=== PATIENT | female | born 1965 | race Caucasian/White ===

== ENCOUNTER 2023-11-21 14:21 | Emergency (ER) | payer SELFPAY ==
--- OUTSIDE RECORDS SUMMARY | 2023-11-21 14:25 | XMS REPORT | Continuity of Care Document ---
Author Name Unknown Address [address] [facility] Zak[address] [facility] Address [address] [facility] [address] [place] [address] Care Team Providers Care Endoscopy Registered Nurse Name Role Phone Aranza Bravo Primary Care Physician Allergies, Adverse Reactions, Alerts Allergy Name Allergy Type Status Severity Reaction(s) Onset Date Inactive Date Treating Clinician Comments Source sulfadia zine Propensi ty to adverse reaction to drug Active 09-18 00:00: 00 Douglas Lei Medications Ordered Medication Name Filled Medication Name Start Date Stop Date Current Medication? Ordering Clinician Indication Dosage Frequency Signature (SIG) Comments Components Source levothyroxi ne 50 mcg tablet 09-18 00:00: 00 Yes 1mcg Douglas Lei propranolol 10 mg tablet 09-05 00:00: 00 Yes 1mg Douglas F Quique Prozac 10 mg capsule - 00:00: 00 Yes 3mg Douglas F Quique propranolol 10 mg tablet - 00:00: 00 Yes 1mg Douglas Emily Quique Prozac 10 mg capsule - 00:00: 00 Yes 3mg Douglas Emily Quique INHALE 2 PUFFS AT 12 HOUR INTERVALS (MORNING AND EVENING). - 00:00: 00 Yes [id number] Douglas Emily Lie INHALE 2 PUFFS TWICE DAILY. - 00:00: 00 Yes 44 Douglas Lei TAKE 1 TABLET TWICE DAILY. -20 00:00: 00 09-18 00:00 :00 No 20 Douglas Lei TAKE 1 TABLET TWICE DAILY WITH FOOD. - 00:00: 00 09-18 00:00 :00 No [id number] Douglas Lei TAKE 2 TABLETS ON DAY 1 THEN TAKE 1 TABLET A DAY FOR 4 DAYS. 2-20 00:00: 00 09-18 00:00 :00 No 250 Douglas Lei TAKE 10 MG TABLET EVERY 12 HOURS NEEDED FOR SITUATIONAL ANXIETY. 1-04 00:00: 00 09-18 00:00 :00 No 10 Douglas Lei TAKE 1 CAPSULE BY MOUTH ONCE DAILY 1-04 00:00: 00 09-18 00:00 :00 No 20 Douglas Lei INHALE 2 PUFFS EVERY 4-6 HOURS, SPACED 60 SECONDS APART. 2022-06 2-12 00:00: 00 Yes [id number] Douglas Lei TAKE 10 MG TABLET EVERY 12 HOURS NEEDED FOR SITUATIONAL ANXIETY. 2022-06 1-09 00:00: 00 09-18 00:00 :00 No 10 Douglas Lei TAKE 1 CAPSULE BY MOUTH ONCE DAILY 2022-06 1-09 00:00: 00 09-18 00:00 :00 No 20 Douglas Lei TAKE 10 MG TABLET EVERY 12 HOURS NEEDED FOR SITUATIONAL ANXIETY. 2022-06 0-10 00:00: 00 09-18 00:00 :00 No 10 Douglas Lei TAKE 1 CAPSULE BY MOUTH ONCE DAILY 2022-06 0-10 00:00: 00 09-18 00:00 :00 No 20 Douglas Lei TAKE 1 TABLET DAILY. 2022-06 0-06 00:00: 00 Yes 50 Douglas Lei TAKE 1 CAPSULE WEEKLY. 2022-06 0-06 00:00: 00 09-18 00:00 :00 No [id number] Douglas Lei TAKE 1 CAPSULE BY MOUTH ONCE DAILY 9-13 00:00: 00 09-18 00:00 :00 No 20 Douglas Lei TAKE 1 CAPSULE BY MOUTH ONCE DAILY 8-16 00:00: 00 09-18 00:00 :00 No 20 Douglas Lei TAKE 1 CAPSULE BY MOUTH ONCE DAILY 7-17 00:00: 00 09-18 00:00 :00 No 20 Douglas Lei TAKE 1 TABLET DAILY. 6-20 00:00: 00 09-18 00:00 :00 No 50 Douglas Lei TAKE 1 CAPSULE BY MOUTH ONCE DAILY 6-19 00:00: 00 09-18 00:00 :00 No 20 Douglaslidya Lei TAKE 1 TABLET DAILY. 6-19 00:00: 00 09-18 00:00 :00 No 10 Douglas Lei 10 ML Q 4 TO 6 HOURS PRN COUGH FOR 5 DAYS 11-20 00:00: 00 09-18 00:00 :00 No [id number] Douglas Lei INHALE 2 PUFFS EVERY 4-6 HOURS, SPACED 60 SECONDS APART. 16 00:00: 00 09-18 00:00 :00 No [id number] Douglas Lei TAKE 10 MG TABLET EVERY 12 HOURS NEEDED FOR SITUATIONAL ANXIETY. 5- 00:00: 00 09-18 00:00 :00 No 10 Douglas Lei TAKE 1 CAPSULE BY MOUTH ONCE DAILY 5-15 00:00: 00 09-18 00:00 :00 No 20 Douglaslidya Lei TAKE 1 CAPSULE BY MOUTH ONCE DAILY 4-20 00:00: 00 09-18 00:00 :00 No 20 Douglas Lei TAKE 10 MG TABLET EVERY 12 HOURS NEEDED FOR SITUATIONAL ANXIETY. -20 00:00: 00 09-18 00:00 :00 No 10 Douglas Lei TAKE 1 TABLET DAILY. 3-28 00:00: 00 09-18 00:00 :00 No 50 Douglas Lei TAKE 1 TABLET DAILY. 3-27 00:00: 00 09-18 00:00 :00 No 75 Douglas Lei TAKE 1 TABLET DAILY. 2021-06 1-29 00:00: 00 09-18 00:00 :00 No 75 Douglas Lei TAKE 1 TABLET EVERY MORNING. 2021-06 0-24 00:00: 00 09-18 00:00 :00 No Douglas Emily Lei Dose Unknown 2021-06 0-20 00:00: 00 Yes Douglas Emily Quique Vital Signs Vital Name Observation Time Observation Value Comments S ource BP Diastolic 2023-09-19 10:14:00 69 mm[Hg] Zak phen F Quique Weight Measured 2023-09-19 10:14:00 182.60 pounds Douglas F Quique Height Measured 2023-09-19 10:14:00 63.00 inches Douglas F Quique Body Temperature 2023-09-19 10:14:00 97.60 degrees Douglas F Quique Heart Rate 2023-09-19 10:14:00 61.00 /min Connie en F Quique Respiratory Rate 2023-09-19 10:14:00 18.00 /min Douglas F Quique BP Systolic 2023-09-19 10:14:00 121 mm[Hg] Step hen F Quique BP Systolic 2023-07-24 10:05:00 122 mm[Hg] Step hen F Quique BP Diastolic 2023-07-24 10:05:00 83 mm[Hg] Zak phen F Quique Weight Measured 2023-07-24 10:05:00 179.00 pounds Douglas F Quique Height Measured 2023-07-24 10:05:00 63.00 inches Douglas F Quique Body Temperature 2023-07-24 10:05:00 98.50 degrees Douglas F Quique Heart Rate 2023-07-24 10:05:00 93.00 /min Connie en F Quique Respiratory Rate 2023-07-24 10:05:00 17.00 /min Douglas F Quique BP Systolic 2023-03-06 10:37:00 141 mm[Hg] Step hen F Quique BP Diastolic 2023-03-06 10:37:00 96 mm[Hg] Zak phen F Quique Weight Measured 2023-03-06 10:37:00 176.80 pounds Douglas F Quique Height Measured 2023-03-06 10:37:00 62.99 inches Douglas F Quique Body Temperature 2023-03-06 10:37:00 98.20 degrees Douglas F Quique Heart Rate 2023-03-06 10:37:00 66.00 /min Connie en F Quique Respiratory Rate 2023-03-06 10:37:00 19.00 /min Douglas F Quique BP Systolic 2023-03-06 10:30:00 141 mm[Hg] Step hen F Quique BP Diastolic 2023-03-06 10:30:00 96 mm[Hg] Zak phen F Quique Weight Measured 2023-03-06 10:30:00 176.80 pounds Douglas F Quique Height Measured 2023-03-06 10:30:00 62.99 inches Douglas F Quique Body Temperature 2023-03-06 10:30:00 98.20 degrees Douglas F Quique Heart Rate 2023-03-06 10:30:00 66.00 /min Connie en F Quique Respiratory Rate 2023-03-06 10:30:00 19.00 /min Douglas F Quique BP Systolic 2022-11-20 13:56:00 114 mm[Hg] Step hen F Quique BP Diastolic 2022-11-20 13:56:00 81 mm[Hg] Zak phen F Quique Weight Measured 2022-11-20 13:56:00 181.20 pounds Douglas F Quique Height Measured 2022-11-20 13:56:00 62.99 inches Douglas F Quique Body Temperature 2022-11-20 13:56:00 97.60 degrees Douglas F Quique Heart Rate 2022-11-20 13:56:00 85.00 /min Connie en F Quique Respiratory Rate 2022-11-20 13:56:00 Douglas F Quique BP Systolic 2022-10-17 11:12:00 Step hen F Quique BP Diastolic 2022-10-17 11:12:00 Zak phen F Quique Weight Measured 2022-10-17 11:12:00 180.00 pounds Douglas F Quique Height Measured 2022-10-17 11:12:00 62.99 inches Douglas F Quique Body Temperature 2022-10-17 11:12:00 Douglas F Quique Heart Rate 2022-10-17 11:12:00 Connie en F Quique Respiratory Rate 2022-10-17 11:12:00 Douglas F Quique BP Systolic 2022-08-28 08:33:00 127 mm[Hg] Step hen F Quique BP Diastolic 2022-08-28 08:33:00 77 mm[Hg] Zak phen F Quique Weight Measured 2022-08-28 08:33:00 178.20 pounds Douglas F Quique Height Measured 2022-08-28 08:33:00 62.99 inches Douglas F Qiuque Body Temperature 2022-08-28 08:33:00 97.50 degrees Douglas F Quique Heart Rate 2022-08-28 08:33:00 66.00 /min Connie en F Quique Respiratory Rate 2022-08-28 08:33:00 25.00 /min Douglas F Quique BP Systolic 2022-05-01 09:41:00 120 mm[Hg] Step hen F Quique BP Diastolic 2022-05-01 09:41:00 84 mm[Hg] Zak phen F Quique Weight Measured 2022-05-01 09:41:00 179.20 pounds Douglas F Quique Height Measured 2022-05-01 09:41:00 62.99 inches Douglas F Quique Body Temperature 2022-05-01 09:41:00 97.50 degrees Douglas F Quique Heart Rate 2022-05-01 09:41:00 72.00 /min Connie en F Quique Respiratory Rate 2022-05-01 09:41:00 19.00 /min Douglas F Quique BP Systolic 2022-03-21 10:49:00 159 mm[Hg] Step hen F Quique BP Diastolic 2022-03-21 10:49:00 99 mm[Hg] Zak phen F Quique Weight Measured 2022-03-21 10:49:00 179.80 pounds Douglas F Quique Height Measured 2022-03-21 10:49:00 62.99 inches Douglas F Quique Body Temperature 2022-03-21 10:49:00 97.30 degrees Douglas F Quique Heart Rate 2022-03-21 10:49:00 73.00 /min Connie en F Quique Respiratory Rate 2022-03-21 10:49:00 Douglas F Quique Encounters Start Date/Time End Date/Time Encounter Type Admission Type Attending [facility] [place] Care Department Encounter ID Source 2023-11-01 09:28:35 2023-11-01 09:28:35 Outpatient [facility] [id number] Douglas Lei 2023-10-16 15:42:09 2023-10-16 15:42:09 Outpatient [facility] [id number] Douglas Lei 2023-09-19 10:12:20 2023-09-19 10:12:20 Outpatient [facility] [id number] Douglas Lei 2023-09-19 00:00:00 2023-09-19 00:00:00 Outpatient Visit [facility] [id number] Douglas Lei 2023-09-11 16:44:49 2023-09-11 16:44:49 Outpatient [facility]FA SFA [id number] Douglas Lei 2023-08-28 14:34:30 2023-08-28 14:34:30 Outpatient SFA SFA [id number] Douglas Lei 2023-08-13 17:25:37 2023-08-13 17:25:37 Outpatient SFA SFA [id number] Douglas Lei 2023-08-06 08:51:42 2023-08-06 08:51:42 Outpatient SFA SFA [id number] Douglas Lei 2023-07-24 10:01:13 2023-07-24 10:01:13 Outpatient SFA SFA [id number] Douglas Lei 2023-07-17 11:06:14 2023-07-17 11:06:14 Outpatient SFA SFA [id number] Douglas Lei 2023-06-07 09:39:03 2023-06-07 09:39:03 Outpatient SFA SFA [id number] Douglas Lei 2023-04-12 09:43:19 2023-04-12 09:43:19 Outpatient SFA SFA [id number] Douglas Lei 2023-03-15 10:20:58 2023-03-15 10:20:58 Outpatient SFA SFA [id number] Douglas Lei 2023-03-06 10:25:12 2023-03-06 10:25:12 Outpatient SFA SFA [id number] Douglas Lei 2023-02-14 10:17:20 2023-02-14 10:17:20 Outpatient SFA SFA [id number] Douglas Lei 2023-01-17 10:37:33 2023-01-17 10:37:33 Outpatient SFA SFA [id number] Douglas Lei 2022-12-18 10:51:23 2022-12-18 10:51:23 Outpatient SFA SFA [id number] Douglas Lei 2022-11-20 13:49:26 2022-11-20 13:49:26 Outpatient SFA SFA [id number] Douglas Lei 2022-10-17 11:11:40 2022-10-17 11:11:40 Outpatient SFA SFA [id number] Douglas Lei 2022-08-28 08:22:13 2022-08-28 08:22:13 Outpatient SFA SFA [id number] Douglas Lei 2022-07-25 10:27:36 2022-07-25 10:27:36 Outpatient SFA SFA [id number] Douglas Lei 2022-06-27 10:03:44 2022-06-27 10:03:44 Outpatient SFA SFA [id number] Douglas Lei 2022-05-01 09:41:12 2022-05-01 09:41:12 Outpatient SFA SFA [id number] Douglas Lei 2022-03-21 10:43:54 2022-03-21 10:43:54 Outpatient SFA SFA [id number] Douglas Lei 2022-03-20 13:03:27 2022-03-20 13:03:27 Outpatient SFA SFA Douglas Lei Results Test Description Test Time Test Comments Results Result Co mments Source COMPREHENSIVE METABOLIC [id number] 06:04:14* Test Item Value Reference Range Interpretation Comme nts GLUCOSE (test code = 2217) 94 MG/DL 70-99 BUN (test code = 2208) 13 MG/DL 6-20 CREATININE (test code = 2214) 0.91 MG/DL 0.60-1.30 eGFR (2020 CKD-EPI) (test co de = 97316) 73 ML/MIN/1.73 >60 CALC BUN/CREAT (test code = 2235) 14 RATIO 6-28 SODIUM (test code = 2231) 142 MEQ/L 133-146 POTASSIUM (test code = 2228) 4.3 MEQ/L 3.5-5.4 CHLORIDE (test code = 2215) 102 MEQ/L 95-107 CARBON DIOXIDE (test code = 2206) 26 MEQ/L 19-31 CALCIUM (test code = 2208) 9.4 MG/DL 8.5-10.5 PROTEIN, TOTAL (test code = 2228) 7.1 G/DL 6.1-8.3 ALBUMIN (test code = 1) 4.6 G/DL 3.5-5.2 CALC GLOBULIN (test code = 2240) 2.5 G/DL 1.9-3.7 CALC A/G RATIO (test code = 2233) 1.8 RATIO 1.0-2.6 BILIRUBIN, TOTAL (test code = 2206) 1.3 MG/DL <=1.2 H ALKALINE PHOSPHATASE (test code = 2203) 72 U/L 40-136 AST (test code = 2217) 20 U/L 9-40 ALT (test code = 2218) 22 U/L 5-40 LIPID [id number] 06:04:14* Test Item Value Reference Range Interpretation Comme nts CHOLESTEROL (test code = 2209) 305 MG/DL <200 H TRIGLYCERIDES (test code = 2) 140 MG/DL <150 HDL CHOLESTEROL (test code = 0) 60 MG/DL >39 CALC LDL CHOL (test code = 2236) 216 MG/DL <100 H NOTE: CALCULATED LDL IS BASED ON MASHA-COLLINS METHOD WHICHINCLUDES ADJUSTABLE TRIGLYCERIDE:VLDL CHOLESTEROL RATIO.THIS FACTOR VARIES BY MEASURED TRIGLYCERIDE AND NON-HDLCHOLESTEROL CONCENTRATIONS WITH INCREASED CALCULATED LDL SEENIN HIGHER TRIGLYCERIDE OR LOWER NON-HDL SPECIMENS. FOR MOREINFORMATION, SEE CLIENT ANNOUNCEMENT AT [email or web address] RISK RATIO LDL/HDL (test code = 2237) 3.60 RATIO <3.22 H HEMOGLOBIN [id number] 03:34:45* Test Item Value Reference Range Interpretation Comme nts HEMOGLOBIN A1c (test code = 01221) 6.1 % 4.2-5.6 H [employer] GUIDELINES FOR HGB A1C: PREDIABETES/INCREASED RISK . . . . . . . 5.7-6.4% DIAGNOSIS OF DIABETES . . . . . . . . . >=6.5% WITH CONFIRMATION OR APPROPRIATE SYMPTOMS NOTE: ASSAY MAY BE AFFECTED BY HEMOGLOBINOPATHIES (SICKLE CELL ANEMIA, S-C DISEASE, OTHERS) OR ARTIFICIALLY LOWERED BY DECREASED RED CELL SURVIVAL (HEMOLYTIC ANEMIAS, BLOOD LOSS, ETC.). CONSIDER ALTERNATE TESTING OR LABORATORY CONSULTATION. HEMOGLOBIN [id number] 05:50:28* Test Item Value Reference Range Interpretation Comme [facility] HEMOGLOBIN A1c (test code = 54035) 6.0 % 4.2-5.6 H [employer] GUIDELINES FOR HGB A1C: PREDIABETES/INCREASED RISK . . . . . . . 5.7-6.4% DIAGNOSIS OF DIABETES . . . . . . . . . >=6.5% WITH CONFIRMATION OR APPROPRIATE SYMPTOMS NOTE: ASSAY MAY BE AFFECTED BY HEMOGLOBINOPATHIES (SICKLE CELL ANEMIA, S-C DISEASE, OTHERS) OR ARTIFICIALLY LOWERED BY DECREASED RED CELL SURVIVAL (HEMOLYTIC ANEMIAS, BLOOD LOSS, ETC.). CONSIDER ALTERNATE TESTING OR LABORATORY CONSULTATION. VITAMIN D, 25 [id number] 04:33:25* Test Item Value Reference Range Interpretation Comme [facility] VITAMIN D, 25 OH (test code = 4958) 20 NG/ML SEE BELOW L EFFECTIVE 02/2023, PLEASE NOTE NEW METHODOLOGY IS ELECTROCHEMILUMINESCENCE BINDING ASSAY. NOTE: 25-HYDROXYVITAMIN D ASSAY INCLUDES 25-HYDROXYVITAMIN D2 AND D3. INTERPRETIVE RANGES PEDIATRIC (<17 YEARS) . . . . . . . . . . . NG/ML 20-100ADULT: INSUFFICIENT . . . . . . . . . . . . . . NG/ML <20 SUBOPTIMAL . . . . . . . . . . . . . . . NG/ML 20-29 OPTIMAL . . . . . . . . . . . . . . . . . NG/ML 30-100 UNLESS OTHERWISE INDICATED, ALL TESTING PERFORMED AT [facility] [address] [place] [id number] [employer]PAREL CUTTER: JONATHAN CORRALES M.D. CLIA NUMBER [id number] [facility] [place]. [id number] T3 [id number] 04:33:01* Test Item Value Reference Range Interpretation Comme [facility] T3 TOTAL (test code = 2818) 116 NG/DL 80-200 TSH, THIRD [id number] 04:33:01* Test Item Value Reference Range Interpretation Comme [facility] TSH, THIRD GENERATION (test code = 2821) 1.410 UIU/ML 0.400-4.100 T4 (THYROXINE)2023-03-07 04:33:01* Test Item Value Reference Range Interpretation Comme nts T4 (THYROXINE) (test code = 2819) 7.4 UG/DL 4.5-10.5 LIPID [id number] 04:14:57* Test Item Value Reference Range Interpretation Comme nts CHOLESTEROL (test code = 2210) 289 MG/DL <200 H TRIGLYCERIDES (test code = 2232) 158 MG/DL <150 H HDL CHOLESTEROL (test code = 2220) 62 MG/DL >39 CALC LDL CHOL (test code = 2237) 195 MG/DL <100 H NOTE: CALCULATED LDL IS BASED ON MASHA-COLLINS METHOD WHICHINCLUDES ADJUSTABLE TRIGLYCERIDE:VLDL CHOLESTEROL RATIO.THIS FACTOR VARIES BY MEASURED TRIGLYCERIDE AND NON-HDLCHOLESTEROL CONCENTRATIONS WITH INCREASED CALCULATED LDL SEENIN HIGHER TRIGLYCERIDE OR LOWER NON-HDL SPECIMENS. FOR MOREINFORMATION, SEE CLIENT ANNOUNCEMENT AT [email or web address] RISK RATIO LDL/HDL (test code = 2238) 3.15 RATIO <3.22 COMPREHENSIVE METABOLIC [id number] 04:14:57* Test Item Value Reference Range Interpretation Comme nts GLUCOSE (test code = 2217) 93 MG/DL 70-99 BUN (test code = 2208) 12 MG/DL 6-20 CREATININE (test code = 2214) 0.83 MG/DL 0.60-1.30 eGFR (2020 CKD-EPI) (test co de = 21754) 82 ML/MIN/1.73 >60 CALC BUN/CREAT (test code = 2235) 14 RATIO 6-28 SODIUM (test code = 223) 142 MEQ/L 133-146 POTASSIUM (test code = 2228) 4.4 MEQ/L 3.5-5.4 CHLORIDE (test code = 2215) 101 MEQ/L 95-107 CARBON DIOXIDE (test code = 2206) 25 MEQ/L 19-31 CALCIUM (test code = 2209) 9.8 MG/DL 8.5-10.5 PROTEIN, TOTAL (test code = 222) 7.2 G/DL 6.1-8.3 ALBUMIN (test code = 220) 4.9 G/DL 3.5-5.2 CALC GLOBULIN (test code = 2240) 2.3 G/DL 1.9-3.7 CALC A/G RATIO (test code = 2234) 2.1 RATIO 1.0-2.6 BILIRUBIN, TOTAL (test code = 2207) 1.1 MG/DL <=1.2 ALKALINE PHOSPHATASE (test code = 2203) 85 U/L 40-136 AST (test code = 2218) 32 U/L 9-40 ALT (test code = 2219) 39 U/L 5-40 CBC W/AUTO DIFF WITH [id number] 02:40:59* Test Item Value Reference Range Interpretation Comme nts WBC (test code = 1001) 5.2 K/UL 3.5-11.0 RBC (test code = 1002) 4.94 M/UL 3.80-5.40 HEMOGLOBIN (test code = 1003) 14.6 G/DL 11.5-15.5 HEMATOCRIT (test code = 1004) 43.4 % 34.0-45.0 MCV (test code = 1005) 87.9 fL 80.0-99.0 MCH (test code = 1006) 29.6 PG 25.0-33.0 MCHC (test code = 1007) 33.6 G/DL 31.0-36.0 RDW (test code = 1038) 13.4 % 11.5-15.0 NEUTROPHILS (test code = 1008) 42.2 % LYMPHOCYTES (test code = 1010) 43.7 % MONOCYTES (test code = 1011) 7.6 % EOSINOPHILS (test code = 1012) 5.5 % BASOPHILS (test code = 1013) 0.8 % IMMATURE GRANULOCYTES (test code = 1036) 0.2 % NUCLEATED RBCS (test code = 1065) 0.0 /100 WBC'S See_Comment [Automated messa ge] The system which generated this result transmitted reference range: 0.0. The reference range was not used to interpret this result as normal/abnormal. PLATELET COUNT (test code = 1015) 231 K/UL 130-400 ABSOLUTE NEUTROPHILS (test code = 1066) 2.21 K/UL 1.50-7.50 ABSOLUTE LYMPHOCYTES (test code = 1067) 2.29 K/UL 1.00-4.00 ABSOLUTE MONOCYTES (test code = 1068) 0.40 K/UL 0.20-1.00 ABSOLUTE EOSINOPHILS (test code = 1040) 0.29 K/UL 0.00-0.50 ABSOLUTE BASOPHILS (test code = 1069) 0.04 K/UL 0.00-0.20 ABS IMMATURE GRANULOCYTES (test code = 1020) 0.01 K/UL 0.00-0.10 ABS NUCLEATED RBCS (test code = 48115) 0.00 K/UL 0.00-0.11 TSH, THIRD [id number] 00:00:00* Test Item Value Reference Range Interpretation Comme nts TSH, THIRD GENERATION (test code = 2821) 1.410 UIU/ML Douglas LeiT4 (THYROXINE)2023-03-07 00:00:00* Test Item Value Reference Range Interpretation Comme nts T4 (THYROXINE) (test code = 2819) 7.4 UG/DL Douglas LeiT3 [id number] 00:00:00* Test Item Value Reference Range Interpretation Comme nts T3 TOTAL (test code = 2818) 116 NG/DL Douglas LeiLIPID [id number] 00:00:00* Test Item Value Reference Range Interpretation Comme nts CHOLESTEROL (test code = 2210) 289 MG/DL TRIGLYCERIDES (test code = 2232) 158 MG/DL HDL CHOLESTEROL (test code = 2220) 62 MG/DL CALC LDL CHOL (test code = 2237) 195 MG/DL RISK RATIO LDL/HDL (test cod e = 2238) 3.15 RATIO Douglas LeiVITAMIN D, 25 [id number] 00:00:00* Test Item Value Reference Range Interpretation Comme nts VITAMIN D, 25 OH (test code = 4958) 20 NG/ML Douglas LeiCBC W/AUTO [id number] 00:00:00* Test Item Value Reference Range Interpretation Comme nts WBC (test code = 1001) 5.2 K/UL RBC (test code = 1002) 4.94 M/UL HEMOGLOBIN (test code = 1003) 14.6 G/DL HEMATOCRIT (test code = 1004) 43.4 % MCV (test code = 1005) 87.9 fL MCH (test code = 1006) 29.6 PG MCHC (test code = 1007) 33.6 G/DL RDW (test code = 1038) 13.4 % NEUTROPHILS (test code = 1008) 42.2 % LYMPHOCYTES (test code = 1010) 43.7 % MONOCYTES (test code = 1011) 7.6 % EOSINOPHILS (test code = 1012) 5.5 % BASOPHILS (test code = 1013) 0.8 % IMMATURE GRANULOCYTES (test code = 1036) 0.2 % NUCLEATED RBCS (test code = 1065) 0.0 /100WBC'S PLATELET COUNT (test code = 1015) 231 K/UL ABSOLUTE NEUTROPHILS (test c ode = 1066) 2.21 K/UL ABSOLUTE LYMPHOCYTES (test c ode = 1067) 2.29 K/UL ABSOLUTE MONOCYTES (test cod e = 1068) 0.40 K/UL ABSOLUTE EOSINOPHILS (test c ode = 1040) 0.29 K/UL ABSOLUTE BASOPHILS (test cod e = 1069) 0.04 K/UL ABS IMMATURE GRANULOCYTES (t est code = 1020) 0.01 K/UL ABS NUCLEATED RBCS (test cod e = 29286) 0.00 K/UL Douglas Diaz QuiqueHEMOGLOBIN [id number] 00:00:00* Test Item Value Reference Range Interpretation Comme nts HEMOGLOBIN A1c (test code = 19636) 6.0 % Douglas Diaz QuiqueCOMPREHENSIVE METABOLIC [id number] 00:00:00* Test Item Value Reference Range Interpretation Comme nts GLUCOSE (test code = 2217) 93 MG/DL BUN (test code = 2208) 12 MG/DL CREATININE (test code = 2214) 0.83 MG/DL eGFR (2020 CKD-EPI) (test co de = 72174) 82 ML/MIN/1.73 CALC BUN/CREAT (test code = 2235) 14 RATIO SODIUM (test code = 2231) 142 MEQ/L POTASSIUM (test code = 2228) 4.4 MEQ/L CHLORIDE (test code = 2215) 101 MEQ/L CARBON DIOXIDE (test code = 2206) 25 MEQ/L CALCIUM (test code = 2209) 9.8 MG/DL PROTEIN, TOTAL (test code = 2229) 7.2 G/DL ALBUMIN (test code = 2201) 4.9 G/DL CALC GLOBULIN (test code = 2240) 2.3 G/DL CALC A/G RATIO (test code = 2234) 2.1 RATIO BILIRUBIN, TOTAL (test code = 2207) 1.1 MG/DL ALKALINE PHOSPHATASE (test code = 2204) 85 U/L AST (test code = 2218) 32 U/L ALT (test code = 2219) 39 U/L KRISTI [id number] 00:00:00* Test Item Value Reference Range Interpretation Comme nts TSH, THIRD GENERATION (test code = 2821) 2.390 UIU/ML KRISTI Williamson [id number] 06:57:42* Test Item Value Reference Range Interpretation Comme nts TSH, THIRD GENERATION (test code = 2821) 0.356 UIU/ML 0.400-4.100 L LIPID [id number] 03:49:00* Test Item Value Reference Range Interpretation Comme nts CHOLESTEROL (test code = 2210) 225 MG/DL <200 H TRIGLYCERIDES (test code = 2232) 86 MG/DL <150 HDL CHOLESTEROL (test code = 2220) 61 MG/DL >39 CALC LDL CHOL (test code = 2237) 145 MG/DL <100 H NOTE: CALCULATED LDL IS BASED ON MASHA-COLLINS METHOD WHICHINCLUDES ADJUSTABLE TRIGLYCERIDE:VLDL CHOLESTEROL RATIO.THIS FACTOR VARIES BY MEASURED TRIGLYCERIDE AND NON-HDLCHOLESTEROL CONCENTRATIONS WITH INCREASED CALCULATED LDL SEENIN HIGHER TRIGLYCERIDE OR LOWER NON-HDL SPECIMENS. FOR MOREINFORMATION, SEE CLIENT ANNOUNCEMENT AT [email or web address] RATIO LDL/HDL (test code = 2238) 2.38 RATIO <3.22 [facility] has i mportant pathology staff changes effective 08/02/2022. New pathology staff will provide uninterrupted, excellent patient care and clinical consultation. See URL: [email or web address]. UNLESS OTHERWISE INDICATED, ALL TESTING PERFORMED AT [facility] [address] [place] [address], [place] [address] [employer]: JONATHAN CORRALES M.D. [place] NUMBER [id number] [facility] [place]. [id number] HEMOGLOBIN [id number] 02:20:30* Test Item Value Reference Range Interpretation Comme nts HEMOGLOBIN A1c (test code = 67365) 5.8 % 4.2-5.6 H [employer] GUIDELINES FOR HGB A1C: PREDIABETES/INCREASED RISK . . . . . . . 5.7-6.4% DIAGNOSIS OF DIABETES . . . . . . . . . >=6.5% WITH CONFIRMATION OR APPROPRIATE SYMPTOMS NOTE: ASSAY MAY BE AFFECTED BY HEMOGLOBINOPATHIES (SICKLE CELL ANEMIA, S-C DISEASE, OTHERS) OR ARTIFICIALLY LOWERED BY DECREASED RED CELL SURVIVAL (HEMOLYTIC ANEMIAS, BLOOD LOSS, ETC.). CONSIDER ALTERNATE TESTING OR LABORATORY CONSULTATION. TSH, THIRD [id number] 00:00:00* Test Item Value Reference Range Interpretation Comme nts TSH, THIRD GENERATION (test code = 2821) 0.356 UIU/ML Douglas LeiHEMOGLOBIN [id number] 00:00:00* Test Item Value Reference Range Interpretation Comme nts HEMOGLOBIN A1c (test code = 59345) 5.8 % Douglas LeiLIPID [id number] 00:00:00* Test Item Value Reference Range Interpretation Comme nts CHOLESTEROL (test code = 2210) 225 MG/DL TRIGLYCERIDES (test code = 2232) 86 MG/DL HDL CHOLESTEROL (test code = 2220) 61 MG/DL CALC LDL CHOL (test code = 2237) 145 MG/DL RISK RATIO LDL/HDL (test cod e = 2238) 2.38 RATIO Douglas LeiTSH, THIRD [id number] 00:00:00* Test Item Value Reference Range Interpretation Comme nts TSH, THIRD GENERATION (test code = 2821) 0.364 UIU/ML Douglas LeiLIPID [id number] 06:52:05* Test Item Value Reference Range Interpretation Comme nts CHOLESTEROL (test code = 2210) 240 MG/DL <200 H TRIGLYCERIDES (test code = 2232) 96 MG/DL <150 HDL CHOLESTEROL (test code = 2220) 58 MG/DL >39 CALC LDL CHOL (test code = 2237) 162 MG/DL <100 H NOTE: CALCULATED LDL IS BASED ON MASHA-COLLINS METHOD WHICHINCLUDES ADJUSTABLE TRIGLYCERIDE:VLDL CHOLESTEROL RATIO.THIS FACTOR VARIES BY MEASURED TRIGLYCERIDE AND NON-HDLCHOLESTEROL CONCENTRATIONS WITH INCREASED CALCULATED LDL SEENIN HIGHER TRIGLYCERIDE OR LOWER NON-HDL SPECIMENS. FOR MOREINFORMATION, SEE CLIENT ANNOUNCEMENT AT [email or web address] RISK RATIO LDL/HDL (test code = 2238) 2.79 RATIO <3.22 COMPREHENSIVE METABOLIC [id number] 06:52:05* Test Item Value Reference Range Interpretation Comme nts GLUCOSE (test code = 2216) 101 MG/DL 70-99 H BUN (test code = 2207) 17 MG/DL 6-20 CREATININE (test code = 2213) 0.83 MG/DL 0.60-1.30 eGFR (2020 CKD-EPI) (test code = ) 82 ML/MIN/1.73 >60 CALC BUN/CREAT (test code = 2234) 20 RATIO 6-28 SODIUM (test code = 2230) 143 MEQ/L 133-146 POTASSIUM (test code = 2227) 4.6 MEQ/L 3.5-5.4 CHLORIDE (test code = 2214) 104 MEQ/L 95-107 CARBON DIOXIDE (test code = 2205) 25 MEQ/L 19-31 CALCIUM (test code = 2208) 9.9 MG/DL 8.5-10.5 PROTEIN, TOTAL (test code = 2228) 7.5 G/DL 6.1-8.3 ALBUMIN (test code = 2200) 4.6 G/DL 3.5-5.2 CALC GLOBULIN (test code = 2239) 2.9 G/DL 1.9-3.7 CALC A/G RATIO (test code = 2233) 1.6 RATIO 1.0-2.6 BILIRUBIN, TOTAL (test code = 2206) 0.9 MG/DL See_Comment [Automated me ssage] The system which generated this result transmitted reference range: <=1.2. The reference range was not used to interpret this result as normal/abnormal. ALKALINE PHOSPHATASE (test code = 2203) 103 U/L 40-136 AST (test code = 2217) 22 U/L 9-40 ALT (test code = 2219) 33 U/L 5-40 TSH, THIRD [id number] 05:36:17* Test Item Value Reference Range Interpretation Comme nts TSH, THIRD GENERATION (test code = 2821) 5.390 UIU/ML 0.400-4.100 H UNLESS OTHERWISE INDICATED, ALL TESTING PERFORMED [facility] [address] [place] [id number] [employer]PAR[employer] CUTTER: NAOMI MARIN M.D. CLIA NUMBER [id number] [facility] [place]. [id number] HEMOGLOBIN [id number] 05:18:37* Test Item Value Reference Range Interpretation Comme nts HEMOGLOBIN A1c (test code = 55504) 6.1 % 4.2-5.6 H CBC W/AUTO DIFF WITH [id number] 04:50:36* Test Item Value Reference Range Interpretation Comme nts WBC (test code = 1001) 6.8 K/UL 3.5-11.0 RBC (test code = 1002) 4.83 M/UL 3.80-5.40 HEMOGLOBIN (test code = 1003) 13.4 G/DL 11.5-15.5 HEMATOCRIT (test code = 1004) 40.5 % 34.0-45.0 MCV (test code = 1005) 83.9 fL 80.0-99.0 MCH (test code = 1006) 27.7 PG 25.0-33.0 MCHC (test code = 1007) 33.1 G/DL 31.0-36.0 RDW (test code = 1038) 14.8 % 11.5-15.0 NEUTROPHILS (test code = 1008) 51.7 % LYMPHOCYTES (test code = 1010) 32.8 % MONOCYTES (test code = 1011) 8.3 % EOSINOPHILS (test code = 1012) 6.4 % BASOPHILS (test code = 1013) 0.7 % IMMATURE GRANULOCYTES (test code = 1036) 0.1 % NUCLEATED RBCS (test code = 1065) 0.0 /100 WBC'S See_Comment [Automated messa ge] The system which generated this result transmitted reference range: 0.0. The reference range was not used to interpret this result as normal/abnormal. PLATELET COUNT (test code = 1015) 233 K/UL 130-400 ABSOLUTE NEUTROPHILS (test code = 1066) 3.50 K/UL 1.50-7.50 ABSOLUTE LYMPHOCYTES (test code = 1067) 2.22 K/UL 1.00-4.00 ABSOLUTE MONOCYTES (test code = 1068) 0.56 K/UL 0.20-1.00 ABSOLUTE EOSINOPHILS (test code = 1040) 0.43 K/UL 0.00-0.50 ABSOLUTE BASOPHILS (test code = 1069) 0.05 K/UL 0.00-0.20 ABS IMMATURE GRANULOCYTES (test code = 1020) 0.01 K/UL 0.00-0.10 ABS NUCLEATED RBCS (test code = 41016) 0.00 K/UL 0.00-0.11 COMPREHENSIVE METABOLIC [id number] 00:00:00* Test Item Value Reference Range Interpretation Comme nts GLUCOSE (test code = 2217) 101 MG/DL BUN (test code = 2208) 17 MG/DL CREATININE (test code = 2214) 0.83 MG/DL eGFR (2020 CKD-EPI) (test co de = 59163) 82 ML/MIN/1.73 CALC BUN/CREAT (test code = 2235) 20 RATIO SODIUM (test code = 2231) 143 MEQ/L POTASSIUM (test code = 2228) 4.6 MEQ/L CHLORIDE (test code = 2215) 104 MEQ/L CARBON DIOXIDE (test code = 2206) 25 MEQ/L CALCIUM (test code = 2209) 9.9 MG/DL PROTEIN, TOTAL (test code = 2229) 7.5 G/DL ALBUMIN (test code = 2201) 4.6 G/DL CALC GLOBULIN (test code = 2240) 2.9 G/DL CALC A/G RATIO (test code = 2234) 1.6 RATIO BILIRUBIN, TOTAL (test code = 2207) 0.9 MG/DL ALKALINE PHOSPHATASE (test code = 2204) 103 U/L AST (test code = 2218) 22 U/L ALT (test code = 2219) 33 U/L Douglas Rose, THIRD [id number] 00:00:00* Test Item Value Reference Range Interpretation Comme nts TSH, THIRD GENERATION (test code = 2821) 5.390 UIU/ML Douglas LeiCBC W/AUTO [id number] 00:00:00* Test Item Value Reference Range Interpretation Comme nts WBC (test code = 1001) 6.8 K/UL RBC (test code = 1002) 4.83 M/UL HEMOGLOBIN (test code = 1003) 13.4 G/DL HEMATOCRIT (test code = 1004) 40.5 % MCV (test code = 1005) 83.9 fL MCH (test code = 1006) 27.7 PG MCHC (test code = 1007) 33.1 G/DL RDW (test code = 1038) 14.8 % NEUTROPHILS (test code = 1008) 51.7 % LYMPHOCYTES (test code = 1010) 32.8 % MONOCYTES (test code = 1011) 8.3 % EOSINOPHILS (test code = 1012) 6.4 % BASOPHILS (test code = 1013) 0.7 % IMMATURE GRANULOCYTES (test code = 1036) 0.1 % NUCLEATED RBCS (test code = 1065) 0.0 /100WBC'S PLATELET COUNT (test code = 1015) 233 K/UL ABSOLUTE NEUTROPHILS (test c ode = 1066) 3.50 K/UL ABSOLUTE LYMPHOCYTES (test c ode = 1067) 2.22 K/UL ABSOLUTE MONOCYTES (test cod e = 1068) 0.56 K/UL ABSOLUTE EOSINOPHILS (test c ode = 1040) 0.43 K/UL ABSOLUTE BASOPHILS (test cod e = 1069) 0.05 K/UL ABS IMMATURE GRANULOCYTES (t est code = 1020) 0.01 K/UL ABS NUCLEATED RBCS (test cod e = 24328) 0.00 K/UL Douglas LeiHEMOGLOBIN [id number] 00:00:00* Test Item Value Reference Range Interpretation Comme nts HEMOGLOBIN A1c (test code = 53172) 6.1 % Douglas LeiLIPID [id number] 00:00:00* Test Item Value Reference Range Interpretation Comme nts CHOLESTEROL (test code = 2210) 240 MG/DL TRIGLYCERIDES (test code = 2232) 96 MG/DL HDL CHOLESTEROL (test code = 2220) 58 MG/DL CALC LDL CHOL (test code = 2237) 162 MG/DL RISK RATIO LDL/HDL (test cod e = 2238) 2.79 RATIO Douglas Diaz Quique Notes Date/Time Note Provider Source 2023-09-19 00:00:00 [id number] [id number] T00:00:00+ + +| Plan Activity | Plan Date |+ + +| TSH | 2022-03-21 || Adjust levothyhroxine based on Thyroid panel - which is pending | || Currently on levothyroxine 50 mcg qd | |+ + +| Lipid panel; history of hyperlipidemia treated on statin | 2022-03-21 |+ + +| A1C, CMP | 2022-03-21 |+ + +| CBC, vitamin D | 2022-03-21 |+ + +| LIPID-FASTING | 2022-05-01 || | || Increase Exercise to 3-5 times a week for at least 45 minutes | || High Fiber Low Calorie Diet | || Reduce Carbohydrates | || Increase Vegetables | || 5-6 small healthy meals a day | || RTO 6 months for follow-up of chronic condition | |+ + +| Pt on prozac | 2022-05-01 || Positive SI | || NO suicide action plan. | || Schedule visit today | || 988 hotline | || ER precautions | |+ + +| Contact the 988 Suicide and Crisis Lifeline if you are experiencing mental | 2022-05-01 || health-related distress or are worried about a loved one who may need crisis | || support. | || No suicide action plan or intent presently | || visit today | || ER precautions | |+ + +| A1C | 2022-08-28 || CMP | || | || Treatment pending diagnostic results | || Diet and exercise encouraged | || Treatment pending diagnostic results | || FU 6 months | |+ + +| LULU TAKE DIRECTED | 2022-10-17 || s/e of meds discussed | |+ + +| Avoid sugary snacks and drinks. Encourage to drink more water. | 2022-11-20 |+ + +| FLU RSV COVID | 2022-11-20 |+ + +| COVID, FLU, RSV | 2022-11-20 || Prednisone and azithromycin take as directed | || If positive for covid regardless of vaccination status- Isolate for 5 days. If | || you have no symptoms or your symptoms are resolving after 5 days, you can leave | || your house. Continue to wear a well-fitting mask around others for 5 additional | || days If you have a fever, continue to stay home until your fever resolves. | || | || If you were exposed: | || Have been booster OR Completed the primary series of Pfizer of Moderna vaccine | || within the last 6 months OR Completed the primary series of J&J vaccine within | || the last 2 months---- wear a mask around others for 10 days; test on day 5 , if | || possible, If you develop symptoms, get a test and stay home. | || | || IF you were exposed: Completed the primary series of Pfizer or Moderna vaccine | || over 6 months ago and are not boosted OR Completed the primary series of J&J | || over 2 months ago and are not boosted OR are unvaccinated---Stay home for 5 | || days, AFter that continue to wear a well-fitting mask around others for 5 | || additional days, If you can't quarantine you must wear a well- fiiting mask for | || 10 days. Test on day 5 if possible. If you develop symptoms, get a test and | || stay home, | |+ + +| prednisone 10 mg qd po x 5 days | 2022-11-20 || Continue with albuterol inhaler | || Bromfed take as directed | |+ + +| FIT CARD | 2022-11-20 |+ + +| Exercise 15-30 minutes a day for 5 days of a week. | 2022-11-20 |+ + +| Avoid processed foods. Eat more fruits and vegetables. | 2022-11-20 |+ + +| Exercise 30 minutes a day for 5 days of week. Eat more fruits and vegetables. | 2023-03-06 |+ + +| Referral for screening Mammogram | 2023-03-06 |+ + +| COVID, FLU, RSV | 2023-07-24 || If positive for covid regardless of vaccination status- Isolate for 5 days. If | || you have no symptoms or your symptoms are resolving after 5 days, you can leave | || your house. Continue to wear a well-fitting mask around others for 5 additional | || days If you have a fever, continue to stay home until your fever resolves. | || | || If you were exposed: | || Have been booster OR Completed the primary series of Pfizer of Moderna vaccine | || within the last 6 months OR Completed the primary series of J&J vaccine within | || the last 2 months---- wear a mask around others for 10 days; test on day 5 , if | || possible, If you develop symptoms, get a test and stay home. | || | || IF you were exposed: Completed the primary series of Pfizer or Moderna vaccine | || over 6 months ago and are not boosted OR Completed the primary series of J&J | || over 2 months ago and are not boosted OR are unvaccinated---Stay home for 5 | || days, AFter that continue to wear a well-fitting mask around others for 5 | || additional days, If you can't quarantine you must wear a well- fiiting mask for | || 10 days. Test on day 5 if possible. If you develop symptoms, get a test and | || stay home, | |+ + +| COVID, FLU, RSV, | 2023-07-24 || | || | || | || If positive for covid regardless of vaccination status- Isolate for 5 days. If | || you have no symptoms or your symptoms are resolving after 5 days, you can leave | || your house. Continue to wear a well-fitting mask around others for 5 additional | || days If you have a fever, continue to stay home until your fever resolves. | || | || If you were exposed: | || Have been booster OR Completed the primary series of Pfizer of Moderna vaccine | || within the last 6 months OR Completed the primary series of J&J vaccine within | || the last 2 months---- wear a mask around others for 10 days; test on day 5 , if | || possible, If you develop symptoms, get a test and stay home. | || | || IF you were exposed: Completed the primary series of Pfizer or Moderna vaccine | || over 6 months ago and are not boosted OR Completed the primary series of J&J | || over 2 months ago and are not boosted OR are unvaccinated---Stay home for 5 | || days, AFter that continue to wear a well-fitting mask around others for 5 | || additional days, If you can't quarantine you must wear a well- fiiting mask for | || 10 days. Test on day 5 if possible. If you develop symptoms, get a test and | || stay home, | |+ + +| COVID, FLU, RSV, | 2023-07-24 || | || If positive for covid regardless of vaccination status- Isolate for 5 days. If | || you have no symptoms or your symptoms are resolving after 5 days, you can leave | || your house. Continue to wear a well-fitting mask around others for 5 additional | || days If you have a fever, continue to stay home until your fever resolves. | || | || If you were exposed: | || Have been booster OR Completed the primary series of Pfizer of Moderna vaccine | || within the last 6 months OR Completed the primary series of J&J vaccine within | || the last 2 months---- wear a mask around others for 10 days; test on day 5 , if | || possible, If you develop symptoms, get a test and stay home. | || | || IF you were exposed: Completed the primary series of Pfizer or Moderna vaccine | || over 6 months ago and are not boosted OR Completed the primary series of J&J | || over 2 months ago and are not boosted OR are unvaccinated---Stay home for 5 | || days, AFter that continue to wear a well-fitting mask around others for 5 | || additional days, If you can't quarantine you must wear a well- fiiting mask for | || 10 days. Test on day 5 if possible. If you develop symptoms, get a test and | || stay home, | |+ + +| azithromycin take as directed | 2023-07-24 || Augmentin take as directed | || s/e of meds discussed | |+ + +[id number] of TreatmentSELECT SPECIALTY HOSPITAL-[facility]AGINAWFA|[id number] for patient [id number] Section NarrativeNARRATIVEFormatted C-CDA narrative textSFAStcandelario [facility]2024-04-17T00:00:00 [facility]"
[2023-11-21 15:14] LABS: Absolute Eosinophils 0.5 K/uL (0-0.5); Absolute Monocytes 0.6 K/uL (0.1-1.3); Absolute Neutrophil 2.3 K/uL (1.8-8.0); Basophils % 0.8 % (0-1.3); Eosinophils % 8.6 % (0-4.4); Hematocrit 38.5 % (36.0-45.0); Hemoglobin 12.6 g/dL (12.0-15.0); MCH 28.9 pg (27.0-35.0); MCHC 32.8 g/dL (32.0-36.0); MCV 88.3 fL (80-100); MPV 9.2 fL (7.6-11.3); Monocytes % 11.3 % (3.3-12.3); Neutrophils % 42.3 % (41.7-73.7); Platelets 203 thou/uL (152-406); RBC Red Blood Cell Count 4.36 M/uL (3.86-4.86); Red Cell Distribution Width 13.7 % (12.1-15.2)
[2023-11-21 15:36] LABS: ALT/SGPT 56 U/L (13-56); AST/SGOT 23 U/L (15-37); Albumin 3.4 g/dL (3.4-5.0); Albumin/Globulin Ratio 1.1 (1.1-1.8); Alkaline Phosphatase 66 U/L (45-117); Anion Gap 7.9 mEq/L (5.0-15.0); BUN Blood Urea Nitrogen 11 mg/dL (7-18); Bicarbonate 27 mEq/L (21-32); Bilirubin Direct 0.2 mg/dL (0-0.2); Bilirubin Indirect, Calculated 0.5 mg/dL (0.2-0.8); Bilirubin Total 0.7 mg/dL (0.2-1.0); Globulin 3.1 g/dL (2.3-3.5); Glomerular Filtration Rate 73 ml/min (=/>90); Glucose Level 105 mg/dL (74-106); Magnesium 2.1 mg/dL (1.6-2.4); NT PRO-BNP 147 pg/mL (<125); Potassium 3.9 mEq/L (3.5-5.1); Protein, Total 6.5 g/dL (6.4-8.2); Sodium Level 139 mEq/L (136-145)
[2023-11-21 15:55] LABS: PT Prothrombin Time 11.2 SECONDS (9.5-12.5); Protime INR 1.02
--- NOTE | 2023-11-21 16:25 | RAD REPORT ---
EXAM DESCRIPTION: US - Extremity Venous Uni Ltd - 11/21/2023 3:11 pm CLINICAL HISTORY: Pain COMPARISON: None. TECHNIQUE: Real-time sonographic evaluation of the right lower extremity deep venous system was perf ormed. FINDINGS: Normal compressibility, flow augmentation, phasic flow and spontaneous flow is identified in the right lower extremity deep venous system. No intraluminal filling defects seen. IMPRESSION: No DVT in the right lower extremity.
[2023-11-21 16:29] LABS: Troponin High Sensitivity < 3.0 pg/mL (<58.9)
--- NOTE | 2023-11-21 17:53 | RAD REPORT ---
EXAM DESCRIPTION: CT - Chest For Pe Angio - 11/21/2023 4:50 pm CLINICAL HISTORY: CHEST PAIN COMPARISON: No comparisons TECHNIQUE: Thin axial CT images of the chest were obtained following administration of 100 mL Isovue 370 IV contrast. Multiplanar reconstructions, and maximum intensity projection reconstructions were generated and reviewed. Exam utilizes a protocol for optimal evaluation of pulmonary arterial tree. All CT scans are performed using dose optimization technique as appropriate and may include automated exposure control or mA/KV adjustment according to patient size. FINDINGS: Pulmonary arteries are normal. No emboli or other suspicious finding. No acute or signific ant aorta findings. No mass or infiltrate in the lung parenchyma. No pleural thickening or pleural effusion. No pneumotho rax. No abnormal mediastinal or hilar masses or lymphadenopathy seen. No chest wall mass or abnormal axill iary lymphadenopathy. IMPRESSION: No evidence of acute central pulmonary emboli. Negative CT scan of the chest for other significant findings.
--- NOTE | 2023-11-21 18:05 | EDPHYS ---
Physician Documentation [facility] Name: Glenna Pretty Age: 58 yrs Sex: Female : 1965 Arrival Date: 11/21/2023 Time: 14:21 Bed 4 Private MD: ED Physician Huey Devries HPI: 11/20 14:49 This 58 yrs old Female presents to ER via Ambulatory with complaints of Leg Swelling, sp3 upper extremity pain. 14:49 58-year-old female with history of hypothyroidism, borderline diabetes, borderline sp3 hyperlipidemia presents with right lower extremity calf pain and episodic pleuritic chest pain for the last 4 days after returning from a recent road trip 5 vehicle from [place] where she was visiting family. Patient returned here 2 days ago on Sunday or her symptoms started. She now presents to the ED for concerns of DVT and/or clot. She denies any dull substernal chest pain, shortness of breath, abdominal pain, vomiting, diarrhea, syncope, near syncope, racing heart, headache, fever, or any other signs or symptoms on ROS at this time. Her chest pain is sharp and pleuritic in nature and worse with breathing off and on when it is there.. Historical: - Allergies: 14:33 Sulfa (Sulfonamide Antibiotics); ko1 - PMHx: 14:33 Hypothyroidism; Depressive disorder; ko1 - PSHx: 14:33 None; ko1 - Immunization history:: Adult Immunizations up to date. - Infectious Disease History:: Denies. - Social history:: Smoking status: Patient denies any tobacco usage or history of. ROS: 14:50 Constitutional: Negative for fever, chills, and weight loss, Eyes: Negative for injury, sp3 pain, redness, and discharge, ENT: Negative for injury, pain, and discharge, Neck: Negative for injury, pain, and swelling, Abdomen/GI: Negative for abdominal pain, nausea, vomiting, diarrhea, and constipation, Back: Negative for injury and pain, Skin: Negative for injury, rash, and discoloration, Neuro: Negative for headache, weakness, numbness, tingling, and seizure, Psych: Negative for depression, anxiety, suicide ideation, homicidal ideation, and hallucinations, Allergy/Immunology: Negative for hives, rash, and allergies, Endocrine: Negative for neck swelling, polydipsia, polyuria, polyphagia, and marked weight changes, Hematologic/Lymphatic: Negative for swollen nodes, abnormal bleeding, and unusual bruising, 14:50 All other systems are negative, Exam: 14:50 Constitutional: This is a well developed, well nourished patient who is awake, alert, sp3 and in no acute distress. Head/Face: Normocephalic, atraumatic. Eyes: Pupils equal round and reactive to light, extra-ocular motions intact. Lids and lashes normal. Conjunctiva and sclera are non-icteric and not injected. Cornea within normal limits. Periorbital areas with no swelling, redness, or edema. ENT: Nares patent. No nasal discharge, no septal abnormalities noted. External auditory canals are clear. Oropharynx with no redness, swelling, or masses, exudates, or evidence of obstruction, uvula midline. Mucous membranes moist. Neck: Trachea midline, no thyromegaly or masses palpated, and no cervical lymphadenopathy. Supple, full range of motion without nuchal rigidity, or vertebral point tenderness. No Meningismus. Chest/axilla: Normal chest wall appearance and motion. Nontender with no deformity. No lesions are appreciated. Cardiovascular: Regular rate and rhythm with a normal S1 and S2. No gallops, murmurs, or rubs. Normal PMI, no JVD. No pulse deficits. Respiratory: Lungs have equal breath sounds bilaterally, clear to auscultation and percussion. No rales, rhonchi or wheezes noted. No increased work of breathing, no retractions or nasal flaring. Abdomen/GI: Soft, non-tender, with normal bowel sounds. No distension or tympany. No guarding or rebound. No evidence of tenderness throughout. Back: No spinal tenderness. No costovertebral tenderness. Full range of motion. Skin: Warm, dry with normal turgor. Normal color with no rashes, no lesions, and no evidence of cellulitis. Neuro: Awake and alert, GCS 15, oriented to person, place, time, and situation. Cranial nerves II-XII grossly intact. Motor strength 5/5 in all extremities. Sensory grossly intact. Cerebellar exam normal. Normal gait. Psych: Awake, alert, with orientation to person, place and time. Behavior, mood, and affect are within normal limits. 14:50 Musculoskeletal/extremity: Patient with right calf pain to palpation. Distal neurovascular exam is normal. All other extremities are normal.. 14:53 ECG was reviewed by the Attending Physician. EKG demonstrates normal sinus rhythm at 73 sp3 bpm with normal intervals, normal QRS, normal axis, normal ST/T segments without evidence of acute ischemia. Vital Signs: 14:28 BP 114 / 85; Pulse 78; Resp 16; Temp 97; Pulse Ox 100% ; ko1 16:27 BP 123 / 93; Pulse 77; Resp 17; Pulse Ox 99% on R/A; rs5 18:10 BP 125 / 88; Pulse 71; Resp 17; Pulse Ox 99% on R/A; rs5 MDM: 14:41 Patient medically screened. sp3 14:51 Data reviewed: vital signs, nurses notes, lab test result(s), EKG, radiologic studies. sp3 ED course: 58-year-old female with right lower extremity pain and now mostly resolved pleuritic chest pain. Differential diagnosis includes DVT, muscle strain, pleurisy, PE, chest wall pain, and to a lesser degree acute coronary syndrome, vascular pathology, GI pathology, among others. Clinically I am not highly suspicious for sepsis or shock. Workup will include ultrasound of the right lower extremity, CT scan of the chest and PE protocol, laboratory values, EKG and general support. Eitel signs are within normal limits and patient is in no acute distress at this time. If workup is negative, we will safely discharge patient home to PCP follow-up.. 18:03 ED course: Full workup negative including ultrasound, CT and all labs. Will administer sp3 ketorolac 50 mg IV and discharge patient home on diclofenac with PCP follow-up.. 11/20 14:46 Order name: Basic Metabolic Panel; Complete Time: 16:30 3 11/20 14:46 Order name: CBC with Diff; Complete Time: 16:27 3 11/20 14:46 Order name: LFT's; Complete Time: 16:30 sp3 11/20 14:46 Order name: Magnesium; Complete Time: 16:30 sp3 11/20 14:46 Order name: NT PRO-BNP; Complete Time: 16:30 sp3 11/20 14:46 Order name: PT-INR; Complete Time: 16:27 sp3 11/20 14:46 Order name: Troponin HS; Complete Time: 16:30 sp3 11/20 14:46 Order name: CT Chest For PE Angio; Complete Time: 17:57 3 11/20 14:46 Order name: US Extremity Venous Unilateral Ltd; Complete Time: 16:27 3 11/20 14:46 Order name: Cardiac monitoring; Complete Time: 15:05 3 11/20 14:46 Order name: EKG - Nurse/Tech; Complete Time: 14:55 3 11/20 14:46 Order name: IV Saline Lock; Complete Time: 15:05 3 11/20 14:46 Order name: Labs collected and sent; Complete Time: 15:05 3 11/20 14:46 Order name: O2 Sat Monitoring; Complete Time: 15:05 3 11/20 15:11 Order name: Labs - recollect needed: recollect blue top; Complete Time: 15:35 bd Administered Medications: 18:00 Drug: Ketorolac IVP 15 mg IVP once Route: IVP; Site: right antecubital; rs5 18:15 Follow up: Response: No adverse reaction; Pain is decreased rs5 Disposition Summary: 11/21/23 18:04 Discharge Ordered Notes: Location: Home sp3 Condition: Stable sp3 Diagnosis - Right lower extremity pain, chest pain sp3 Followup: sp3 - With: Private Physician - When: Upon discharge from the Emergency Department - Reason: Continuance of care Discharge Instructions: - Discharge Summary Sheet sp3 - Muscle Pain, Adult sp3 Forms: - Medication Reconciliation Form sp3 - Antibiotic Education sp3 - Prescription Opioid Use sp3 - Patient Portal Instructions sp3 - Leadership Thank You Letter sp3 Prescriptions: - Diclofenac Sodium 75 mg Oral Tablet Sustained Release - take 1 tablet ORAL route 2 times per day; 30 tablet; Refills: 0, Product sp3 Selection Permitted Signatures: Dispatcher [employer] EDMS Yajaira Matias Setul, MD MD sp3 Mayela Pierre RN RN ko1 Chris Rg RN RN rs5 Corrections: (The following items were deleted from the chart) 14:47 14:47 BASIC METABOLIC PANEL+C.LAB.BRZ ordered. EDMS EDMS 14:47 14:47 CBC+H.LAB.BRZ ordered. EDMS EDMS 14:47 14:47 HEPATIC FUNCTION+C.LAB.BRZ ordered. EDMS EDMS 14:47 14:47 MAGNESIUM+C.LAB.BRZ ordered. EDMS EDMS 14:47 14:47 PROBNP+C.LAB.BRZ ordered. EDMS EDMS 14:47 14:47 PROTIME (+INR)+COAG.LAB.BRZ ordered. EDMS EDMS 14:47 14:47 Troponin High Sensitivity+C.LAB.BRZ ordered. EDMS EDMS 14:47 14:47 Chest For PE Angio+CT.RAD.BRZ ordered. EDMS EDMS 14:47 14:47 Extremity Venous Uni Ltd+US.RAD.BRZ ordered. EDMS EDMS
--- NOTE | 2023-11-21 18:05 | ER ---
Nurse's Notes [facility] Name: Glenna Pretty Age: 58 yrs Sex: Female : 1965 Arrival Date: 11/21/2023 Time: 14:21 Bed 4 Private MD: Diagnosis: Right lower extremity pain, chest pain Presentation: 11/20 14:28 Chief complaint: Patient states: about 5 days ago, went on a road trip, now having pain ko1 in right leg. Coronavirus screen: At this time, the client does not indicate any symptoms associated with coronavirus-19. Ebola Screen: No symptoms or risks identified at this time. Initial Sepsis Screen: Does the patient meet any 2 criteria? No. Patient's initial sepsis screen is negative. Does the patient have a suspected source of infection? No. Patient's initial sepsis screen is negative. Risk Assessment: Do you want to hurt yourself or someone else? Patient reports no desire to harm self or others. Onset of symptoms was November 20, 2023. 14:28 Method Of Arrival: Ambulatory ko1 14:28 Acuity: BECKY 3 ko1 Triage Assessment: 14:33 General: Appears in no apparent distress. Behavior is calm, cooperative, appropriate ko1 for age. Pain: Complains of pain in right leg. Historical: - Allergies: 14:33 Sulfa (Sulfonamide Antibiotics); ko1 - PMHx: 14:33 Hypothyroidism; Depressive disorder; ko1 - PSHx: 14:33 None; ko1 - Immunization history:: Adult Immunizations up to date. - Infectious Disease History:: Denies. - Social history:: Smoking status: Patient denies any tobacco usage or history of. Screenin:40 [facility] ED Fall Risk Assessment (Adult) History of falling in the last 3 months, rs5 including since admission No falls in past 3 months (0 pts) Confusion or Disorientation No (0 pts) Intoxicated or Sedated No (0 pts) Impaired Gait Yes (1 pt) Mobility Assist Device Used No (0 pt) Altered Elimination No (0 pt) Score/Fall Risk Level 0 - 2 = Low Risk Oriented to surroundings, Maintained a safe environment. Abuse screen: Denies threats or abuse. Nutritional screening: No deficits noted. Tuberculosis screening: No symptoms or risk factors identified. Assessment: 14:40 General: Appears in no apparent distress. uncomfortable, Behavior is calm, cooperative. rs5 Pain: Complains of pain in right leg Pain radiates to right foot Pain currently is 5 out of 10 on a pain scale. Quality of pain is described as aching, Is continuous. Neuro: Level of Consciousness is awake, alert, obeys commands, Oriented to person, place, time, situation. Cardiovascular: Patient's skin is warm and dry. Rhythm is regular. Respiratory: Airway is patent Respiratory effort is even, unlabored, Respiratory pattern is regular, symmetrical. GI: Abdomen is round non-distended. : No signs and/or symptoms were reported regarding the genitourinary system. EENT: No signs and/or symptoms were reported regarding the EENT system. Derm: Skin is intact, Skin is pink, warm \T\ dry. Musculoskeletal: Range of motion: intact in all extremities. 15:08 Reassessment: Patient and/or family updated on plan of care and expected duration. Pain rs5 level reassessed. Patient is alert, oriented x 3, equal unlabored respirations, skin warm/dry/pink. 16:15 Reassessment: Patient and/or family updated on plan of care and expected duration. Pain rs5 level reassessed. Patient is alert, oriented x 3, equal unlabored respirations, skin warm/dry/pink. Patient states feeling better. 17:20 Reassessment: No changes from previously documented assessment. rs5 18:15 Reassessment: Patient and/or family updated on plan of care and expected duration. Pain rs5 level reassessed. Patient is alert, oriented x 3, equal unlabored respirations, skin warm/dry/pink. Vital Signs: 14:28 BP 114 / 85; Pulse 78; Resp 16; Temp 97; Pulse Ox 100% ; ko1 16:27 BP 123 / 93; Pulse 77; Resp 17; Pulse Ox 99% on R/A; rs5 18:10 BP 125 / 88; Pulse 71; Resp 17; Pulse Ox 99% on R/A; rs5 ED Course: 14:28 Patient arrived in ED. ra3 14:33 Triage completed. ko1 14:33 Arm band placed on right wrist. Patient placed in an exam room, on a stretcher, on ko1 youth nutritional monitor, on pulse oximetry, Patient notified of wait time. 14:38 Huey Devries MD is Attending Physician. sp3 14:40 Patient has correct armband on for positive identification. Bed in low position. Call rs5 light in reach. Side rails up X2. 14:50 Chris Rg, RN is Primary Nurse. rs5 14:55 EKG done, by ED staff, reviewed by Huey Devries MD. em1 15:00 Inserted saline lock: 22 gauge in left hand, using aseptic technique. rs5 15:00 No provider procedures requiring assistance completed. rs5 15:13 US Extremity Venous Unilateral Ltd In Process Unspecified. EDMS 16:51 CT Chest For PE Angio In Process Unspecified. EDMS 18:10 IV discontinued, intact, bleeding controlled, No redness/swelling at site. Pressure rs5 dressing applied. Administered Medications: 18:00 Drug: Ketorolac IVP 15 mg IVP once Route: IVP; Site: right antecubital; rs5 18:15 Follow up: Response: No adverse reaction; Pain is decreased rs5 Medication: 14:40 VIS not applicable for this client. rs5 Outcome: 18:04 Discharge ordered by MD. sp3 18:10 Discharged to home ambulatory, rs5 18:10 Condition: stable 18:10 Discharge instructions given to patient, family, Instructed on discharge instructions, follow up and referral plans. medication usage, Demonstrated understanding of instructions, follow-up care, medications, Prescriptions given X 1, 18:17 Patient left the ED. rs5 Signatures: Dispatcher [employer] EDWA Roby Mahajan em1 Huey Devries MD MD sp3 Mayela Pierre, RN RN ko1 Chris Rg, RN RN rs5 Shara Reynoso 3
[2023-11-21] MEDS ORDERED: KETOROLAC 30 MG/ML INJ ONE (18:07)
[2023-11-21 18:22] VITALS: BP 123/93; TEMP 97; O2SAT 99
== END 2023-11-21 18:17 | disposition home or self-care (01) ==
LOC: ER 14:21
DX: M79.661 Pain in right lower leg (principal); R07.9 Chest pain, unspecified
CPT/HCPCS: 36415; 71275; 80048; 80076; 83735; 83880; 84484; 85025; 85610; 93005; 93971; Q9967

== ENCOUNTER 2023-11-22 22:38 | Emergency (ER) | payer SELFPAY ==
--- OUTSIDE RECORDS SUMMARY | 2023-11-22 22:42 | XMS REPORT | Continuity of Care Document ---
Author Name Unknown Address [address] [facility] [address] th[address] Address [address] [facility] [address] [place] [address] Care Team Providers Care Nursery Supervisor Name Role Phone Aranza Bravo Primary Care [...] 1mcg Douglas Lei propranolol 10 mg tablet - 00:00: 00 Yes 1mg Douglas F Quique Prozac 10 mg capsule - 00:00: 00 Yes 3mg Douglas F Quique propranolol 10 mg tablet - 00:00: 00 Yes 1mg Douglas F Quique Prozac 10 mg capsule 3-04 00:00: 00 Yes 3mg Douglas Emily Quique INHALE 2 PUFFS AT 12 HOUR INTERVALS (MORNING AND EVENING). -20 00:00: 00 Yes [id number] Douglas Emily Lei INHALE 2 PUFFS TWICE DAILY. 07-24 00:00: 00 Yes 44 Douglas Lei TAKE 1 TABLET TWICE DAILY. -20 00:00: 00 09-18 00:00 :00 No 20 Douglaslidya Lei TAKE 1 TABLET TWICE DAILY WITH FOOD. - 00:00: 00 09-18 00:00 :00 No [id number] Douglas Lei TAKE 2 TABLETS ON DAY [...] SECONDS APART. 2022-06 2-12 00:00: 00 Yes [id number] Douglas Lei TAKE 10 MG TABLET EVERY [...] 0-06 00:00: 00 09-18 00:00 :00 No [id number] Douglas Lei TAKE 1 CAPSULE BY [...] TAKE 1 CAPSULE BY MOUTH ONCE DAILY - 00:00: 00 09-18 00:00 :00 No 20 Douglaslidya Lei TAKE 1 TABLET DAILY. - 00:00: 00 09-18 00:00 :00 No 10 Douglas Lei 10 ML Q 4 TO 6 HOURS PRN COUGH FOR 5 DAYS 11-20 00:00: 00 09-18 00:00 :00 No [id number] Douglas Lei INHALE 2 PUFFS EVERY 4-6 HOURS, SPACED 60 SECONDS APART. -16 00:00: 00 09-18 00:00 :00 No [id number] Douglas Lei TAKE 10 MG TABLET EVERY 12 HOURS NEEDED FOR SITUATIONAL ANXIETY. 5- 00:00: 00 09-18 00:00 :00 No 10 Douglas Lei TAKE 1 CAPSULE BY MOUTH ONCE DAILY 5-15 00:00: 00 09-18 00:00 :00 No 20 Douglas Lei TAKE 1 CAPSULE BY MOUTH ONCE DAILY -20 00:00: 00 09-18 00:00 :00 No 20 Douglas Lei TAKE 10 MG TABLET EVERY 12 HOURS NEEDED FOR SITUATIONAL ANXIETY. 20 00:00: 00 09-18 00:00 :00 No 10 [...] 00:00: 00 09-18 00:00 :00 No Douglas Diaz Quique Dose Unknown 2021-06 0-20 00:00: 00 Yes Douglas F Quique Vital Signs Vital Name Observation Time Observation Value Comments S antoine BP Diastolic 2023-09-19 10:14:00 69 mm[Hg] Zak [...] Quique Body Temperature 2022-11-20 13:56:00 97.60 degrees Douglsa F Quique Heart Rate 2022-11-20 13:56:00 85.00 [...] Measured 2022-08-28 08:33:00 62.99 inches Douglas F Quique Body Temperature 2022-08-28 08:33:00 97.50 degrees Douglas [...] End Date/Time Encounter Type Admission Type Attending [facility] Care Department Encounter ID Source 2023-11-01 09:28:35 2023-11-01 09:28:35 Outpatient [facility] [id number] Douglas F Quique 2023-10-16 15:42:09 2023-10-16 15:42:09 Outpatient [facility] [id number] Douglas F Quique 2023-09-19 10:12:20 2023-09-19 10:12:20 Outpatient [facility] [id number] Douglas Lei 2023-09-19 00:00:00 2023-09-19 00:00:00 Outpatient Visit SFA [id number] Douglas Lei 2023-09-11 16:44:49 2023-09-11 16:44:49 Outpatient SFA [facility] [id number] Douglas Lei 2023-08-28 14:34:30 2023-08-28 14:34:30 Outpatient SFA [facility] [id number] Douglas Lei 2023-08-13 17:25:37 2023-08-13 17:25:37 Outpatient SFA [facility] [id number] Doul[place] Lei 2023-08-06 08:51:42 2023-08-06 08:51:42 Outpatient SFA [facility] [id number] Douglas Lei 2023-07-24 10:01:13 2023-07-24 10:01:13 Outpatient SFA [facility] [id number] Douglas Lei 2023-07-17 11:06:14 2023-07-17 11:06:14 Outpatient SFA [facility] [id number] Douglas Lei 2023-06-07 09:39:03 2023-06-07 09:39:03 Outpatient SFA [facility] [id number] Douglas Lei 2023-04-12 09:43:19 2023-04-12 09:43:19 Outpatient SFA SFA [id number] Douglas Lei 2023-03-15 10:20:58 2023-03-15 10:20:58 Outpatient SFA SFA [id number] Douglas Lei 2023-03-06 10:25:12 2023-03-06 10:25:12 Outpatient SFA [facility] [id number] Douglas Lei 2023-02-14 10:17:20 2023-02-14 10:17:20 Outpatient SFA [facility] [id number] Douglas Lei 2023-01-17 10:37:33 2023-01-17 10:37:33 Outpatient SFA SFA [id number] Douglas Lei 2022-12-18 10:51:23 2022-12-18 10:51:23 Outpatient SFA SFA [id number] Douglas Lei 2022-11-20 13:49:26 2022-11-20 13:49:26 Outpatient SFA SFA [id number] Douglas Lei 2022-10-17 11:11:40 2022-10-17 11:11:40 Outpatient SFA SFA [id number] Douglas Lei 2022-08-28 08:22:13 2022-08-28 08:22:13 Outpatient SFA SFA [id number] Douglas Lei 2022-07-25 10:27:36 2022-07-25 10:27:36 Outpatient SFA SFA [id number] Douglas Lei 2022-06-27 10:03:44 2022-06-27 10:03:44 Outpatient SFA SFA [id number] Douglas Lei 2022-05-01 09:41:12 2022-05-01 09:41:12 Outpatient SFA SFA [id number] Douglas Lei 2022-03-21 10:43:54 2022-03-21 10:43:54 Outpatient SFA SFA Douglas Lei 2022-03-20 13:03:27 2022-03-20 13:03:27 Outpatient SFA SFA Douglas Lei Results Test Description Test Time Test Comments Results Result Co mments Source COMPREHENSIVE METABOLIC [id number] 06:04:14* Test Item Value Reference Range Interpretation Comme nts GLUCOSE (test code = 2217) 94 MG/DL 70-99 BUN (test code = 2208) 13 MG/DL 6-20 CREATININE (test code = 2214) 0.91 MG/DL 0.60-1.30 eGFR (2020 CKD-EPI) (test co de = 05976) 73 ML/MIN/1.73 >60 CALC BUN/CREAT (test code = 2235) 14 RATIO 6-28 SODIUM (test code = 2231) 142 MEQ/L 133-146 POTASSIUM (test code = 2228) 4.3 MEQ/L 3.5-5.4 CHLORIDE (test code = 2215) 102 MEQ/L 95-107 CARBON DIOXIDE (test code = 6) 26 MEQ/L 19-31 CALCIUM (test code = 2208) 9.4 MG/DL 8.5-10.5 PROTEIN, TOTAL (test code = 2228) 7.1 G/DL 6.1-8.3 ALBUMIN (test code = 1) 4.6 G/DL 3.5-5.2 CALC GLOBULIN (test code = 0) 2.5 G/DL 1.9-3.7 CALC A/G RATIO (test code = 2233) 1.8 RATIO 1.0-2.6 BILIRUBIN, TOTAL (test code = 2206) 1.3 MG/DL <=1.2 H ALKALINE PHOSPHATASE (test code = 2203) 72 U/L 40-136 AST (test code = 2217) 20 U/L 9-40 ALT (test code = 2218) 22 U/L 5-40 LIPID [id number] 06:04:14* Test Item Value Reference Range Interpretation [...] SPECIMENS. FOR MOREINFORMATION, SEE CLIENT ANNOUNCEMENT AT [email or web address] RISK RATIO LDL/HDL (test code = 2238) 3.60 RATIO <3.22 H HEMOGLOBIN [id number] 03:34:45* Test Item Value Reference Range Interpretation Comme nts HEMOGLOBIN A1c (test code = 85801) 6.1 % 4.2-5.6 H [employer] GUIDELINES FOR HGB A1C: [...] CONSIDER ALTERNATE TESTING OR LABORATORY CONSULTATION. HEMOGLOBIN [id number] 05:50:28* Test Item Value Reference Range Interpretation Comme [facility] HEMOGLOBIN A1c (test code = 37627) 6.0 % 4.2-5.6 H [employer] GUIDELINES FOR HGB A1C: [...] TESTING OR LABORATORY CONSULTATION. VITAMIN D, 25 [id number] 04:33:25* Test Item Value Reference Range Interpretation Comme [facility] VITAMIN D, 25 OH (test code = [...] TESTING PERFORMED AT [facility] [address] [place] [address] MASTER CRAFTSMAN: JONATHAN CORRALES M.D. CLIA NUMBER [id number] [facility] [place]. [id number] TSH, THIRD [id number] 04:33:01* Test Item Value Reference Range Interpretation Comme [facility] TSH, THIRD GENERATION (test code = 2821) 1.410 UIU/ML 0.400-4.100 T4 (THYROXINE)2023-03-07 04:33:01* Test Item Value Reference Range Interpretation Comme [facility] T4 (THYROXINE) (test code = 281) 7.4 UG/DL 4.5-10.5 T3 [id number] 04:33:01* Test Item Value Reference Range Interpretation Comme nts T3 TOTAL (test code = 2817) 116 NG/DL 80-200 COMPREHENSIVE METABOLIC [id number] 04:14:57* Test Item Value Reference Range Interpretation Comme nts GLUCOSE (test code = 2216) 93 MG/DL 70-99 BUN (test code = 2207) 12 MG/DL 6-20 CREATININE (test code = 2213) 0.83 MG/DL 0.60-1.30 eGFR (2020 CKD-EPI) (test co de = 86803) 82 ML/MIN/1.73 >60 CALC BUN/CREAT (test code = 2234) 14 RATIO 6-28 SODIUM (test code = 2230) 142 MEQ/L 133-146 POTASSIUM (test code = 2227) 4.4 MEQ/L 3.5-5.4 CHLORIDE (test code = 5) 101 MEQ/L 95-107 CARBON DIOXIDE (test code = 6) 25 MEQ/L 19-31 CALCIUM (test code = 2208) 9.8 MG/DL 8.5-10.5 PROTEIN, TOTAL (test code = 2228) 7.2 G/DL 6.1-8.3 ALBUMIN (test code = 1) 4.9 G/DL 3.5-5.2 CALC GLOBULIN (test code = 2240) 2.3 G/DL 1.9-3.7 CALC A/G RATIO (test code = 2234) 2.1 RATIO 1.0-2.6 BILIRUBIN, TOTAL (test code = 2206) 1.1 MG/DL <=1.2 ALKALINE PHOSPHATASE (test code = 4) 85 U/L 40-136 AST (test code = 2218) 32 U/L 9-40 ALT (test code = 2219) 39 U/L 5-40 LIPID [id number] 04:14:57* Test Item Value Reference Range Interpretation Comme nts CHOLESTEROL (test code = 2210) 289 MG/DL <200 H TRIGLYCERIDES (test code = 2232) 158 MG/DL <150 H HDL CHOLESTEROL (test code = 2219) 62 MG/DL >39 CALC LDL CHOL (test code = 223) 195 MG/DL <100 H NOTE: CALCULATED LDL IS BASED ON MASHA-COLLINS METHOD WHICHINCLUDES ADJUSTABLE TRIGLYCERIDE:VLDL CHOLESTEROL RATIO.THIS FACTOR VARIES BY MEASURED TRIGLYCERIDE AND NON-HDLCHOLESTEROL CONCENTRATIONS WITH INCREASED CALCULATED LDL SEENIN HIGHER TRIGLYCERIDE OR LOWER NON-HDL SPECIMENS. FOR MOREINFORMATION, SEE CLIENT ANNOUNCEMENT AT [email or web address] /CalcLDL-C RISK RATIO LDL/HDL (test code = 2238) 3.15 RATIO <3.22 CBC W/AUTO DIFF WITH [id number] 02:40:59* Test Item Value Reference Range Interpretation [...] = 1065) 0.0 /100 WBC'S See_Comment [Automated [employer] ge] The system which generated this result [...] 0.00-0.10 ABS NUCLEATED RBCS (test code = 45272) 0.00 K/UL 0.00-0.11 TSH, THIRD [id number] 00:00:00* Test Item Value Reference Range Interpretation Comme nts TSH, THIRD GENERATION (test code = 2821) 1.410 UIU/ML Douglas LeiT4 (THYROXINE)2023-03-07 00:00:00* Test Item Value Reference Range Interpretation Comme nts T4 (THYROXINE) (test code = 2819) 7.4 UG/DL Douglas LeiT3 [id number] 00:00:00* Test Item Value Reference Range Interpretation Comme nts T3 TOTAL (test code = 2818) 116 NG/DL Douglas LeiLIPID [id number] 00:00:00* Test Item Value Reference Range Interpretation Comme nts CHOLESTEROL (test code = 2210) 289 MG/DL TRIGLYCERIDES (test code = 2232) 158 MG/DL HDL CHOLESTEROL (test code = 2220) 62 MG/DL CALC LDL CHOL (test code = 2237) 195 MG/DL RISK RATIO LDL/HDL (test cod e = 2238) 3.15 RATIO Douglas LeiVITAMIN D, 25 [id number] 00:00:00* Test Item Value Reference Range Interpretation Comme nts VITAMIN D, 25 OH (test code = 4958) 20 NG/ML Douglas LeiCBC W/AUTO [id number] 00:00:00* Test Item Value Reference Range Interpretation [...] ABS NUCLEATED RBCS (test cod e = 97625) 0.00 K/UL Douglas Diaz QuiqueHEMOGLOBIN [id number] 00:00:00* Test Item Value Reference Range Interpretation Comme nts HEMOGLOBIN A1c (test code = 31441) 6.0 % Douglas LeiCOMPREHENSIVE METABOLIC [id number] 00:00:00* Test Item Value Reference Range Interpretation Comme nts GLUCOSE (test code = 2217) 93 MG/DL BUN (test code = 2208) 12 MG/DL CREATININE (test code = 2214) 0.83 MG/DL eGFR (2020 CKD-EPI) (test co de = 98037) 82 ML/MIN/1.73 CALC BUN/CREAT (test code = [...] code = 2821) 2.390 UIU/ML KRISTI Williamson [id number] 06:57:42* Test Item Value Reference Range Interpretation Comme nts TSH, THIRD GENERATION (test code = 2821) 0.356 UIU/ML 0.400-4.100 L LIPID [id number] 03:49:00* Test Item Value Reference Range Interpretation [...] SPECIMENS. FOR MOREINFORMATION, SEE CLIENT ANNOUNCEMENT AT [email or web address] /CalcLDL-C RISK RATIO LDL/HDL (test code = 2238) 2.38 RATIO <3.22 [facility] has i mportant pathology staff changes effective 08/02/2022. New pathology staff will provide uninterrupted, excellent patient care and clinical consultation. See URL: [email or web address]. UNLESS OTHERWISE INDICATED, ALL TESTING PERFORMED AT [facility] [address] [place] [address] MASTER CRAFTSMAN: JONATHAN CORRALES M.D. CLIA NUMBER [id number] [facility] [place]. [id number] HEMOGLOBIN [id number] 02:20:30* Test Item Value Reference Range Interpretation Comme nts HEMOGLOBIN A1c (test code = 26884) 5.8 % 4.2-5.6 H [employer] GUIDELINES FOR HGB A1C: [...] ALTERNATE TESTING OR LABORATORY CONSULTATION. TSH, THIRD [id number] 00:00:00* Test Item Value Reference Range Interpretation Comme nts TSH, THIRD GENERATION (test code = 2821) 0.356 UIU/ML Douglas LeiHEMOGLOBIN [id number] 00:00:00* Test Item Value Reference Range Interpretation Comme nts HEMOGLOBIN A1c (test code = 89483) 5.8 % Douglas LeiLIPID [id number] 00:00:00* Test Item Value Reference Range Interpretation Comme nts CHOLESTEROL (test code = 2210) 225 MG/DL TRIGLYCERIDES (test code = 2232) 86 MG/DL HDL CHOLESTEROL (test code = 2220) 61 MG/DL CALC LDL CHOL (test code = 2237) 145 MG/DL RISK RATIO LDL/HDL (test cod e = 2238) 2.38 RATIO Douglas LeiTSH, THIRD [id number] 00:00:00* Test Item Value Reference Range Interpretation Comme nts TSH, THIRD GENERATION (test code = 2821) 0.364 UIU/ML Douglas LeiLIPID [id number] 06:52:05* Test Item Value Reference Range Interpretation [...] SPECIMENS. FOR MOREINFORMATION, SEE CLIENT ANNOUNCEMENT AT [email or web address] /CalcLDL-C RISK RATIO LDL/HDL (test code = 2238) 2.79 RATIO <3.22 COMPREHENSIVE METABOLIC [id number] 06:52:05* Test Item Value Reference Range Interpretation [...] = 2219) 33 U/L 5-40 TSH, THIRD [id number] 05:36:17* Test Item Value Reference Range Interpretation Comme nts TSH, THIRD GENERATION (test code = 2821) 5.390 UIU/ML 0.400-4.100 H UNLESS OTHERWISE INDICATED, [facility] [address] [place] [address] MASTER CRAFTSMAN: NAOMI MARIN M.D. CLIA NUMBER [id number] [facility]. [id number] HEMOGLOBIN [id number] 05:18:37* Test Item Value Reference Range Interpretation Comme nts HEMOGLOBIN A1c (test code = 06353) 6.1 % 4.2-5.6 H CBC W/AUTO DIFF WITH [id number] 04:50:36* Test Item Value Reference Range Interpretation [...] = 1065) 0.0 /100 WBC'S See_Comment [Automated [employer] ge] The system which generated this result [...] 0.00-0.10 ABS NUCLEATED RBCS (test code = 87356) 0.00 K/UL 0.00-0.11 COMPREHENSIVE METABOLIC [id number] 00:00:00* Test Item Value Reference Range Interpretation Comme nts GLUCOSE (test code = 2217) 101 MG/DL BUN (test code = 2208) 17 MG/DL CREATININE (test code = 2214) 0.83 MG/DL eGFR (2020 CKD-EPI) (test co de = 00837) 82 ML/MIN/1.73 CALC BUN/CREAT (test code = [...] = 2219) 33 U/L Douglas Rose, THIRD [id number] 00:00:00* Test Item Value Reference Range Interpretation Comme nts TSH, THIRD GENERATION (test code = 2821) 5.390 UIU/ML Douglas LeiCBC W/AUTO [id number] 00:00:00* Test Item Value Reference Range Interpretation [...] ABS NUCLEATED RBCS (test cod e = 29015) 0.00 K/UL Douglas Diaz QuiqueHEMOGLOBIN [id number] 00:00:00* Test Item Value Reference Range Interpretation Comme nts HEMOGLOBIN A1c (test code = 37639) 6.1 % Douglas LeiLIPID [id number] 00:00:00* Test Item Value Reference Range Interpretation Comme nts CHOLESTEROL (test code = 2210) 240 MG/DL TRIGLYCERIDES (test code = 2232) 96 MG/DL HDL CHOLESTEROL (test code = 2220) 58 MG/DL CALC LDL CHOL (test code = 2237) 162 MG/DL RISK RATIO LDL/HDL (test cod e = 2238) 2.79 RATIO Douglas Diaz Quique Notes Date/Time Note Provider Source 2023-09-19 00:00:00 [id number] TtaNWMjlmzScTenta [id number] T00:00:00+ + +| Plan Activity | Plan [...] || Schedule visit today | || [facility] | || ER precautions | |+ + [...] 6 months | |+ + +| LULU HUGHES DIRECTED | 2022-10-17 || s/e of meds [...] s/e of meds discussed | |+ + +67065-5Hvce of TreatmentBE[facility]PITALFA|[id number] for patient r[id number] Section NarrativeNARRATIVEFormatted C-CDA narrative textSFAStcandelario Frankel [facility]2024-04-17T00:00:00 Douglas Frankel [facility]"
[2023-11-22] MEDS ORDERED: KETOROLAC 30 MG/ML INJ ONE (23:32)
--- NOTE | 2023-11-23 00:50 | ER ---
Nurse's Notes [facility] Name: Glenna Pretty Age: 58 yrs Sex: Female : 1965 Arrival Date: 11/22/2023 Time: 22:38 Bed DX3 Private MD: Diagnosis: Pain in right leg;Rash and other nonspecific skin eruption Presentation: 11/21 23:24 Chief complaint: Patient states: Pain in right leg, can not tolerate the pain. Here vc1 last night to r/o DVT. Coronavirus screen: Client denies travel out of the [place] in the last 14 days. At this time, the client does not indicate any symptoms associated with coronavirus-19. Ebola Screen: Patient negative for fever greater than or equal to 101.5 degrees Fahrenheit, and additional compatible Ebola Virus Disease symptoms Patient denies exposure to infectious person. Patient denies travel to an Ebola-affected area in the 21 days before illness onset. No symptoms or risks identified at this time. Initial Sepsis Screen: Does the patient meet any 2 criteria? No. Patient's initial sepsis screen is negative. Does the patient have a suspected source of infection? No. Patient's initial sepsis screen is negative. Risk Assessment: Do you want to hurt yourself or someone else? Patient reports no desire to harm self or others. Onset of symptoms is unknown. 23:24 Method Of Arrival: Ambulatory vc1 23:24 Acuity: BECKY 4 vc1 Triage Assessment: 23:36 General: Appears in no apparent distress. uncomfortable, well groomed, well developed, vc1 Behavior is calm, cooperative, appropriate for age. Pain: Complains of pain in lateral aspect of right thigh Pain does not radiate. Pain currently is 3 out of 10 on a pain scale. at worst was 10 out of 10 on a pain scale. Quality of pain is described as radiating, sharp, Pain began suddenly, 2-3 days ago. Is intermittent, Noted to be grimacing. Neuro: Level of Consciousness is awake, alert, obeys commands, Oriented to person, place, time, situation, Appropriate for age. Cardiovascular: Capillary refill < 3 seconds Patient's skin is warm and dry. Respiratory: Airway is patent Respiratory effort is even, unlabored, Respiratory pattern is regular, symmetrical, Breath sounds are clear bilaterally. GI: Abdomen is round non-distended. : No deficits noted. No signs and/or symptoms were reported regarding the genitourinary system. Derm: Skin is intact, is healthy with good turgor, Skin is dry, Skin is normal, Skin temperature is warm. Musculoskeletal: No deficits noted. No signs and/or symptoms reported regarding the musculoskeletal system. Historical: - Allergies: 23:34 Sulfa (Sulfonamide Antibiotics); vc1 - Home Meds: 23:34 Prozac 10 mg oral capsule TID [Active]; levothyroxine 50 mcg capsule [Active]; vc1 - PMHx: 23:34 depressive disorder; Hypothyroidism; vc1 - PSHx: 23:34 None; vc1 - Immunization history:: Adult Immunizations up to date. - Infectious Disease History:: Denies. - Social history:: Smoking status: Patient denies any tobacco usage or history of. Screenin:39 Abuse screen: Denies threats or abuse. Nutritional screening: No deficits noted. vc1 Tuberculosis screening: No symptoms or risk factors identified. 23:48 [facility] ED Fall Risk Assessment (Adult) History of falling in the last 3 months, jw7 including since admission No falls in past 3 months (0 pts) Confusion or Disorientation No (0 pts) Intoxicated or Sedated No (0 pts) Impaired Gait No (0 pts) Mobility Assist Device Used No (0 pt) Altered Elimination No (0 pt) Score/Fall Risk Level 0 - 2 = Low Risk Oriented to surroundings, Maintained a safe environment, Educated pt \T\ family on fall prevention, incl call for assistance when getting out of bed. Assessment: 23:30 General: Appears in no apparent distress. uncomfortable, Behavior is calm, cooperative, jw7 appropriate for age. Pain: Complains of pain in lateral aspect of right thigh Pain radiates to right leg Pain currently is 8 out of 10 on a pain scale. Quality of pain is described as sharp, shooting, stabbing, Pain began 2-3 days ago. Is continuous. Neuro: Level of Consciousness is awake, alert, obeys commands, Oriented to person, place, time, situation, Appropriate for age. Cardiovascular: Heart tones S1 S2 present Capillary refill < 3 seconds Clubbing of nail beds is absent JVD is absent Patient's skin is warm and dry. Respiratory: Airway is patent Trachea midline Respiratory effort is even, unlabored, Respiratory pattern is regular, symmetrical, Breath sounds are clear bilaterally. GI: Abdomen is round non-distended, Bowel sounds present X 4 quads. Abd is soft and non tender X 4 quads. : No deficits noted. No signs and/or symptoms were reported regarding the genitourinary system. EENT: No deficits noted. No signs and/or symptoms were reported regarding the EENT system. Derm: Skin is intact, is healthy with good turgor, Skin is dry, Skin is normal, Skin temperature is warm. Musculoskeletal: Circulation, motion, and sensation intact. Range of motion: intact in all extremities. 11/22 00:30 Reassessment: Patient appears in no apparent distress at this time. No changes from [facility] previously documented assessment. Patient and/or family updated on plan of care and expected duration. Pain level reassessed. Patient is alert, oriented x 3, equal unlabored respirations, skin warm/dry/pink. General:. 01:30 Reassessment: Patient appears in no apparent distress at this time. Patient and/or jw7 family updated on plan of care and expected duration. Pain level reassessed. Patient is alert, oriented x 3, equal unlabored respirations, skin warm/dry/pink. Patient states symptoms have improved. Vital Signs: 11/21 23:24 Weight 81.65 kg; Height 5 ft. 4 in. ; Pain 3/10; vc1 23:46 BP 113 / 66; Pulse 69; Resp 16 S; Pulse Ox 99% on R/A; jw7 11/22 00:30 BP 128 / 92; Pulse 70; Resp 16 S; Pulse Ox 98% on R/A; jw7 01:30 BP 111 / 64; Pulse 68; Resp 17 S; Temp 98.7(O); Pulse Ox 100% on R/A; jw7 11/21 23:24 Body Mass Index 30.90 (81.65 kg, 162.56 cm) vc1 11/21 23:24 Pain Scale: Adult vc1 ED Course: 11/21 22:40 Patient arrived in ED. jj6 22:40 Magen Cedillo PA is PHCP. cp 22:40 Shilo Oneill MD is Attending Physician. cp 23:28 Triage completed. vc1 23:36 Arm band placed on right wrist. vc1 23:45 Waits, Elenita, RN is Primary Nurse. jw7 23:48 Patient has correct armband on for positive identification. Bed in low position. Call jw7 light in reach. Provided Education on: Use of Call Light. 23:49 Notified ED physician of a critical lab result(s). 464 Blood Glucose. jw7 11/22 00:01 XRAY Femur RIGHT In Process Unspecified. EDMS 01:30 No provider procedures requiring assistance completed. jw7 01:30 Patient did not have IV access during this emergency room visit. jw7 Administered Medications: 11/21 23:49 Drug: Ketorolac IM 30 mg IM once Route: IM; Site: left ventrogluteal; jw7 11/22 01:30 Follow up: Response: No adverse reaction; Marked relief of symptoms jw7 00:48 CANCELLED (Physician Discretion): fentanyl (pf)50 mcg IM once cp 01:20 Drug: fentaNYL (PF) IM 25 mcg IM once Route: IM; Site: left deltoid; jw7 01:30 Follow up: Response: No adverse reaction; Medication administered at discharge. jw7 01:20 Drug: Neurontin PO 300 mg PO once Route: PO; jw7 01:30 Follow up: Response: No adverse reaction; Medication administered at discharge. jw7 Medication: :30 VIS not applicable for this client. jw7 Outcome: 00:49 Discharge ordered by MD. cp 01:30 Discharged to home ambulatory, with family, jw7 01:30 Condition: stable 01:30 Discharge instructions given to patient, Instructed on discharge instructions, follow up and referral plans. medication usage, Demonstrated understanding of instructions, follow-up care, medications, Prescriptions given X 3, 01:30 Patient left the ED. jw7 Signatures: Dispatcher [employer] EDNC Magen Cedillo PA PA cp Jeffries, Jennifer jj6 Lucille Starr RN RN vc1 Elenita Bowen RN RN jw7 Corrections: (The following items were deleted from the chart) 02:04 02:04 Patient left the ED. jw7 jw7
--- NOTE | 2023-11-23 00:50 | EDPHYS ---
Physician Documentation [facility] Name: Glenna Pretty Age: 58 yrs Sex: Female : 1965 Arrival Date: 11/22/2023 Time: 22:38 Bed DX3 Private MD: ED Physician Shilo Oneill HPI: 11/21 23:45 This 58 yrs old Female presents to ER via Ambulatory with complaints of Hip Pain. cp 23:45 The patient or guardian reports pain. sustained from unknown reason, The patient is cp able to self ambulate. The patient is able to bear their full body weight. The complaints affect the right hip. 23:45 Onset: The symptoms/episode began/occurred gradually, and became worse yesterday. cp 23:45 Modifying factors: the symptoms are aggravated by any movement, weight bearing. cp Associated signs and symptoms: Pertinent positives: noticed rash to medial side of right thigh today. Severity of symptoms: in the emergency department the symptoms are unchanged, despite home interventions. The patient has been recently seen at the [facility] Emergency Department, yesterday, for similar complaints US done to r/o DVT. Historical: - Allergies: 23:34 Sulfa (Sulfonamide Antibiotics); vc1 - Home Meds: 23:34 Prozac 10 mg oral capsule TID [Active]; levothyroxine 50 mcg capsule [Active]; vc1 - PMHx: 23:34 depressive disorder; Hypothyroidism; vc1 - PSHx: 23:34 None; vc1 - Immunization history:: Adult Immunizations up to date. - Infectious Disease History:: Denies. - Social history:: Smoking status: Patient denies any tobacco usage or history of. ROS: 23:50 Constitutional: Negative for body aches, chills, fever, poor PO intake, cp 23:50 Eyes: Negative for injury, pain, redness, and discharge, cp 23:50 Cardiovascular: Negative for chest pain, edema, palpitations, 23:50 Respiratory: Negative for cough, shortness of breath, wheezing, 23:50 Abdomen/GI: Negative for abdominal pain, vomiting, diarrhea, constipation, 23:50 MS/extremity: Positive for pain, of the right hip, Negative for injury or acute deformity, decreased range of motion, paresthesias, 23:50 Skin: Positive for rash, of the medial aspect of right thigh, 23:50 Neuro: Negative for numbness, tingling, weakness, 23:50 All other systems are negative, Exam: 23:55 Constitutional: The patient appears in no acute distress, alert, awake, cp non-diaphoretic, non-toxic, well developed, well nourished, uncomfortable, 23:55 Head/Face: Normocephalic, atraumatic. cp 23:55 Eyes: Periorbital structures: appear normal, Conjunctiva: normal, no exudate, no injection, Sclera: no appreciated abnormality, Lids and lashes: appear normal, bilaterally, 23:55 ENT: External ear(s): are unremarkable, Nose: is normal, Mouth: Lips: moist, Oral mucosa: moist, Posterior pharynx: Airway: no evidence of obstruction, patent, 23:55 Chest/axilla: Inspection: normal, 23:55 Cardiovascular: Rate: normal, Rhythm: regular, Pulses: Pulses are 2+ in right dorsalis pedis artery. Edema: is not appreciated, JVD: is not appreciated, 23:55 Respiratory: the patient does not display signs of respiratory distress, Respirations: normal, no use of accessory muscles, no retractions, labored breathing, is not present, 23:55 Abdomen/GI: Inspection: abdomen appears normal, Palpation: abdomen is soft and non-tender, in all quadrants, 23:55 Back: pain, is absent, ROM is normal, 23:55 Musculoskeletal/extremity: Extremities: grossly normal except: noted in the right hip: pain, tenderness, There is no evidence of decreased ROM, deformity, ROM: limited passive range of motion due to pain, in the right hip, 23:55 Skin: rash can be described as erythematous, vesicular, grouped, on the medial aspect of right thigh, 23:55 Neuro: Orientation: to person, place \T\ time. Mentation: is normal, Motor: moves all fours, strength is normal, Gait: is steady, Vital Signs: 23:24 Weight 81.65 kg; Height 5 ft. 4 in. ; Pain 3/10; vc1 23:46 BP 113 / 66; Pulse 69; Resp 16 S; Pulse Ox 99% on R/A; jw7 11/22 00:30 BP 128 / 92; Pulse 70; Resp 16 S; Pulse Ox 98% on R/A; jw7 01:30 BP 111 / 64; Pulse 68; Resp 17 S; Temp 98.7(O); Pulse Ox 100% on R/A; jw7 11/21 23:24 Body Mass Index 30.90 (81.65 kg, 162.56 cm) vc1 11/21 23:24 Pain Scale: Adult vc1 MDM: 11/21 23:14 Patient medically screened. cp 11/22 00:48 Data reviewed: vital signs, nurses notes, radiologic studies, plain films, and as a cp result, I will discharge patient. 00:48 Differential diagnosis: hip fracture, intertrochanteric fracture, femoral neck cp fracture, femoral shaft fracture, bursitis, strain, cellulitis, herpes zoster. I considered the following discharge prescriptions or medication management in the emergency department Medications were administered in the Emergency Department. See MAR. Counseling: I had a detailed discussion with the patient and/or guardian regarding the historical points, exam findings, and any diagnostic results supporting the discharge/admit diagnosis, radiology results, the need for outpatient follow up, a family practitioner, to return to the emergency department if symptoms worsen or persist or if there are any questions or concerns that arise at home. Response to treatment: the patient's symptoms have markedly improved after treatment, and as a result, I will discharge patient. 11/21 23:31 Order name: XRAY Femur RIGHT cp Administered Medications: 11/21 23:49 Drug: Ketorolac IM 30 mg IM once Route: IM; Site: left ventrogluteal; jw7 11/22 01:30 Follow up: Response: No adverse reaction; Marked relief of symptoms jw7 00:48 CANCELLED (Physician Discretion): fentanyl (pf)50 mcg IM once cp 01:20 Drug: fentaNYL (PF) IM 25 mcg IM once Route: IM; Site: left deltoid; jw7 01:30 Follow up: Response: No adverse reaction; Medication administered at discharge. jw7 01:20 Drug: Neurontin PO 300 mg PO once Route: PO; jw7 01:30 Follow up: Response: No adverse reaction; Medication administered at discharge. jw7 Disposition Summary: 11/23/23 00:49 Discharge Ordered Notes: Location: Home cp Problem: an ongoing problem cp Symptoms: have improved cp Condition: Stable cp Diagnosis - Pain in right leg cp - Rash and other nonspecific skin eruption cp Followup: cp - With: Private Physician - When: 2 - 3 days - Reason: Recheck today's complaints Discharge Instructions: - Discharge Summary Sheet cp - Musculoskeletal Pain cp - How to Use Cold Therapy cp - Heat Therapy cp Forms: - Medication Reconciliation Form cp - Antibiotic Education cp - Prescription Opioid Use cp - Patient Portal Instructions cp - Leadership Thank You Letter cp Prescriptions: - Neurontin 300 mg Oral capsule - take 1 capsule ORAL route every 8 hours; 60 capsule; Refills: 0, Product cp Selection Permitted - Acyclovir 800 mg Oral Tablet - take 1 tablet ORAL route 5 times per day for 10 days; 50 tablet; Refills: 0, cp Product Selection Permitted - methocarbamol 750 mg Oral tablet - take 1 tablet ORAL route 3 times per day; 60 tablet; Refills: 0, Product cp Selection Permitted Addendum: 11/25/2023 00:31 Co-signature as Attending Physician, Shilo Oneill MD I agree with the assessment s p4 and plan of care. I reviewed the patient's care provided by the Advanced Practice Provider and agree with the diagnosis and treatment plan. Signatures: Dispatcher [employer] EDMS Magen Cedillo PA PA cp Calcote, Vanessa, RN RN vc1 Elenita Bowen RN RN jw7 Shilo Oneill MD MD sp4 Corrections: (The following items were deleted from the chart) 11/22 00:48 00:48 fentaNYL (PF) IM 50 mcg IM once ordered. cp cp 11/23 01:11/22 23:45 This 58 yrs old Female presents to ER via Ambulatory with complaints of Hip cp Pain. cp 11/23 00:11/22 23:45 The patient or guardian reports pain, cp cp 11/23 00:11/22 23:45 sustained from unknown reason, The patient is able to self ambulate. The cp patient is able to bear their full body weight. cp 11/23 00:11/22 23:45 The complaints affect the right hip, cp cp
[2023-11-23] MEDS ORDERED: GABAPENTIN 300 MG CAP ONE (00:58)
[2023-11-23] MEDS ORDERED: FENTANYL CITR 100 MCG/2 ML ONE (00:59)
[2023-11-23 02:24] VITALS: BP 111/64; TEMP 98.7; O2SAT 100
--- NOTE | 2023-11-23 09:58 | RAD REPORT ---
EXAM DESCRIPTION: RAD - Femur Right - 11/22/2023 11:59 pm CLINICAL HISTORY: 58 years Female, PAIN TECHNIQUE: 2 views COMPARISON: None. FINDINGS: BONES/JOINT: No acute fracture or dislocation. No focal lytic or blastic abnormality. SOFT TISSUES: Unremarkable. No radiopaque foreign body. IMPRESSION: 1. Negative examination. Electronically signed by: Tyron Blair MD 11/23/2023 12:18 AM CDT RP N Due to temporary technical issues with the PACS/Fluency reporting system, reports are being signed by the in house radiologist without review as a courtesy to ensure prompt reporting. The interpreting r adiologist is fully responsible for the content of the report.
== END 2023-11-23 02:04 | disposition home or self-care (01) ==
LOC: ER 22:38
DX: M79.604 Pain in right leg (principal); R21 Rash and other nonspecific skin eruption; E03.9 Hypothyroidism, unspecified; Z79.899 Other long term (current) drug therapy; Z88.2 Allergy status to sulfonamides
CPT/HCPCS: 96372; 99284; J3010